=== PATIENT | female | born 1945 | race Caucasian/White ===

== ENCOUNTER 2016-07-29 19:59 | Inpatient (IN) | payer OTHER ==
[2016-07-29 20:06] VITALS: BMI 20.1
--- NOTE | 2016-07-29 21:45 | PDOC ---
History of Present Illness - General History Source: Patient, Family (Vera) - History of Present Illness Initial Comments: 07/29/16 21:54 The patient is a 70 year old female with no reported significant past medical history, who presents to the ER s/p unwitnessed fall today. Patient reports she fell backwards while trying to walk down the steps of her apartment. She states she fell backwards without reported dizziness or lightheadedness at the time of the incident. As per patients daughter, patient has frequently lost her balance secondary to her hip replacement problems. Patient states the ball came out of the socket and she has had previous falls secondary to this problem. 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 Patient states she lifted herself up after the fall without assistance. She admits to hitting her head during the fall and believes she lost consciousness. Denies nausea, vomiting Denies dizziness or lightheadedness Denies fever, chills Denies weakness, paresthesia, numbness Denies chest pain or shortness of breath Social Hx: Patient lives on her own. She admits to smoking 1 pack of cigs/day and drinking a couple of glasses of alcohol every night. <Jocy Abreu - Last Filed: 07/30/16 00:18> <Lizette Hare - Last Filed: 07/30/16 19:50> - General Chief Complaint: Injury Stated Complaint: HEAD INJURY Time Seen by Provider: 07/29/16 20:14 Past History <Jocy Abreu - Last Filed: 07/30/16 00:18> - Psycho/Social/Smoking Cessation Hx Suicidal Ideation: No Smoking History: Never smoked Have you smoked in the past 12 months: No Information on smoking cessation initiated: No Hx Alcohol Use: No Drug/Substance Use Hx: No <Lizette Hare - Last Filed: 07/30/16 19:50> - Past Medical History Allergies/Adverse Reactions: Allergies Allergy/AdvReac Type Severity Reaction Status Date / Time No Known Allergies Allergy Verified 07/29/16 20:13 Home Medications: Ambulatory Orders Aspirin [ASA -] 81 mg PO DAILY 07/29/16 Meloxicam 7.5 mg PO DAILY 07/29/16 Review of Systems - Review of Systems Comments:: 07/29/16 21:54 CONSTITUTIONAL: Absent: fever, no chills, no fatigue EYES: Absent: visual changes ENT: Absent: ear pain, no sore throat CARDIOVASCULAR: Absent: chest pain, no palpitations RESPIRATORY: Absent: cough, no SOB GI: Absent: abdominal pain, no nausea, no vomiting, no constipation, no diarrhea GENITOURINARY: Absent: dysuria, no frequency, no hematuria MUSCULOSKELETAL: Present: (+) head trauma/pain Absent: back pain, no arthralgia, no myalgia SKIN: Absent: rash NEURO: Absent: headache <NmfabienneJocy - Last Filed: 07/30/16 00:18> *Physical Exam - Vital Signs Last Vital Signs Temp Pulse Resp BP Pulse Ox 97.8 F 94 H 18 111/65 99 07/29/16 20:04 07/29/16 20:04 07/29/16 20:04 07/29/16 20:04 07/29/16 20:04 - Physical Exam Comments: 07/29/16 21:55 GENERAL: Smells of alcohol, slurring speech. Malnourished. Pale. No apparent distress. Has dentures. HEENT: Scalp laceration in the posterior head. Normocephalic, atraumatic. PERRL, EOM intact. CARDIOVASCULAR: Normal S1, S2. Regular rate and rhythm. PULMONARY: Clear to auscultation bilaterally. ABDOMEN: Soft, non-distended, non-tender. EXTREMITIES: Pelvic ramus not palpable and is asymmetric. No pitting edema in legs. Normal ROM in all four extremities. No gross deformities. SKIN: Warm, dry. No rash NEUROLOGICAL: Following commands. No focal neurological deficits. <NmfabienneJocy - Last Filed: 07/30/16 00:18> - Vital Signs Last Vital Signs Temp Pulse Resp BP Pulse Ox 97.8 F 94 H 18 111/65 99 07/29/16 20:04 07/29/16 20:04 07/29/16 20:04 07/29/16 20:04 07/29/16 20:04 <Lizette Hare - Last Filed: 07/30/16 19:50> Procedures - Laceration/Wound Repair Posterior Head Wound Length: 2.6 to 5.0 cm Wound Explored: clean Wound's Depth, Shape: into muscle, linear Irrigated w/ Saline: Yes Betadine Prep: No Wound Repaired With: [place] (Five sami placed) <Lizette Hare - Last Filed: 07/30/16 19:50> ED Treatment Course - LABORATORY CBC & Chemistry Diagram: 07/30/16 07:25 07/30/16 18:30 - RADIOLOGY Radiology Studies Ordered: Category Date Time Status CERVICAL SPINE CT W/O CONTR [CT] Stat CT Scan 07/29/16 20:[address] WITHOUT CONTRAST [CT] Stat CT Scan 07/29/16 20:15 Completed <Lizette Hare - Last Filed: 07/30/16 19:50> Medical Decision Making - Medical Decision Making 07/30/16 19:46 Pt is an alcoholic who lives alone. 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 Pt will remain in the ER for observation. Her PMD is Cheli -- I spoke to him and we discussed the possibility of sending patient to alcohol detox once she completes medical evaluation. Dr. Hayes is covering for PMD and he is aware of the patient. 07/30/16 19:47 Pt was found to have severe hyponatremia and hypokalemia when we did labs for admission of the patient. She will be treated with banana bag and potassium replacement. <Lizette Hare - Last Filed: 07/30/16 19:50> *DC/Admit/Observation/Transfer - Attestations Scribe Attestion: 07/29/16 21:59 Documentation prepared by Jocy Abreu, acting as biomedical equipment support specialist for Lizette Hare MD. <Jocy Abreu - Last Filed: 07/30/16 00:18> - Discharge Dispostion Admit: Yes <Lizette Hare - Last Filed: 07/30/16 19:50> Diagnosis at time of Disposition: Inability to ambulate due to hip, Alcohol abuse, Hyponatremia, Hypokalemia Head injury Qualifiers: Encounter type: initial encounter Qualified Code(s): S09.90XA - Unspecified injury of head, initial encounter
[2016-07-30 00:25] LABS: BASOPHIL 0.2 % (0-2.0); MCH 20.4 pg (25.7-33.7); MCHC 31.2 g/dl (32.0-36.0); MEAN CELL VOLUME 65.1 fl (80-96); MEAN PLT VOLUME 8.3 fl (7.5-11.1); NEUTROPHILS 85.7 % (42.8-82.8); PLATELET COUNT 204 K/MM3 (134-434); RDW 24.6 % (11.6-15.6); WHITE BLOOD COUNT 10.2 K/mm3 (4.0-10.0)
[2016-07-30 00:50] LABS: ALBUMIN 3.1 g/dl (3.4-5.0); ALK PHOS 72 U/L (45-117); ANION GAP 16 (8-16); BILIRUBIN,TOTAL 0.8 mg/dL (0.2-1.0); CALCIUM 7.9 mg/dL (8.5-10.1); CO2 25 mmol/L (21-32); CREATININE 0.3 mg/dL (0.55-1.02); GLUCOSE,RANDOM 90 mg/dL (74-106); SGOT/AST 65 U/L (15-37); SGPT/ALT 23 U/L (12-78); TOT PROT 7.1 g/dl (6.4-8.2)
[2016-07-30] MEDS ORDERED: FOLIC ACID INJECTION - 1 MG, THIAMINE HCL 100 MG, MULTIVIT INJECTION ADULT 10 ML in SOD... IVPB ONE (00:53)
[2016-07-30] MEDS ORDERED: POTASSIUM CHLORIDE TABS 20 MEQ TABLET.ER (FP) PO ONE ×4 (00:53→20:27)
[2016-07-30] MEDS ORDERED: MAGNESIUM SULF 50% (8.12 MEQ/2 ML-1 GM VIAL) IVPB ONE (00:53)
[2016-07-30] MEDS ORDERED: OXYCODONE/APAP 5/325MG COMBO TABLET PO PRN (01:12)
[2016-07-30 01:13] LABS: INR 1.22 (0.82-1.09); PROTHROMBIN TIME (PATIENT) 13.5 SEC (9.98-11.88)
[2016-07-30] MEDS ORDERED: OXYCODONE/APAP 5/325MG COMBO TABLET ONE (01:17)
[2016-07-30 02:10] LABS: ANISOCYTOSIS 3+; HYPOCHROMIA 3+; MICROCYTOSIS 1+
[2016-07-30] MEDS ORDERED: oxyCODONE HCL 5 MG TABLET PO PRN (07:50)
[2016-07-30] MEDS ORDERED: ACETAMINOPHEN 325 MG TABLET (FP) PO PRN (07:50)
[2016-07-30 07:56] LABS: MCH 21.1 pg (25.7-33.7); MCHC 32.6 g/dl (32.0-36.0); MEAN CELL VOLUME 64.8 fl (80-96); MEAN PLT VOLUME 8.7 fl (7.5-11.1); PLATELET COUNT 175 K/MM3 (134-434); RDW 24.5 % (11.6-15.6); WHITE BLOOD COUNT 6.9 K/mm3 (4.0-10.0)
[2016-07-30 08:08] LABS: ALBUMIN 2.8 g/dl (3.4-5.0); ANION GAP 13 (8-16); CALCIUM 7.7 mg/dL (8.5-10.1); CO2 26 mmol/L (21-32); GLUCOSE,RANDOM 76 mg/dL (74-106)
[2016-07-30 08:13] LABS: ALK PHOS 63 U/L (45-117); BILIRUBIN,TOTAL 1.1 mg/dL (0.2-1.0); CREATININE 0.3 mg/dL (0.55-1.02); SGOT/AST 48 U/L (15-37); SGPT/ALT 19 U/L (12-78); TOT PROT 6.2 g/dl (6.4-8.2)
--- NOTE | 2016-07-30 10:49 | HP ---
Admitting History and Physical - Primary Care Physician PCP: Shauna Cuevas - Admission Chief Complaint: FALL/HEAD TRAUMA/ACUTE HYPONATREMIA History of Present Illness: The patient is a 70 year old female with no reported significant past medical history, who presents to the ER s/p unwitnessed fall today. Patient reports she fell backwards while trying to walk down the steps of her apartment. She states she fell backwards without reported dizziness or lightheadedness at the time of the incident. As per patients daughter, patient has frequently lost her balance secondary to her hip replacement problems. Patient states the ball came out of the socket and she has had previous falls secondary to this problem. 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 Patient states she lifted herself up after the fall without assistance. She admits to hitting her head during the fall and believes she lost consciousness. Denies nausea, vomiting Denies dizziness or lightheadedness Denies fever, chills Denies weakness, paresthesia, numbness Denies chest pain or shortness of breath History Source: Patient Limitations to Obtaining History: No Limitations - Past Medical History Musculoskeletal: Yes: Osteoarthritis - Past Surgical History Past Surgical History: Yes: Joint Replacement - Smoking History Smoking history: Smoker current status UNK Have you smoked in the past 12 months: Yes Aproximately how many cigarettes per day: 12 - Alcohol/Substance Use Hx Alcohol Use: Yes Home Medications - Allergies Allergies/Adverse Reactions: Allergies Allergy/AdvReac Type Severity Reaction Status Date / Time No Known Allergies Allergy Verified 07/29/16 20:13 - Home Medications Home Medications: Ambulatory Orders Aspirin [ASA -] 81 mg PO DAILY 07/29/16 Meloxicam 7.5 mg PO DAILY 07/29/16 Review of Systems - Review of Systems Constitutional: reports: Weakness Eyes: reports: No Symptoms HENT: reports: No Symptoms Neck: reports: No Symptoms Cardiovascular: reports: No Symptoms Respiratory: reports: No Symptoms Gastrointestinal: reports: No Symptoms Genitourinary: reports: No Symptoms Musculoskeletal: reports: Joint Pain, Muscle Weakness Integumentary: reports: Wound (HEAD) Neurological: reports: No Symptoms Endocrine: reports: No Symptoms Hematology/Lymphatic: reports: No Symptoms Psychiatric: reports: No Symptoms Physical Examination Vital Signs: Vital Signs Temperature 98.1 F 07/30/16 10:00 Pulse Rate 89 07/30/16 10:00 Respiratory Rate 18 07/30/16 10:00 Blood Pressure 136/65 07/30/16 10:00 O2 Sat by Pulse Oximetry (%) 94 L 07/30/16 02:55 Constitutional: Yes: Mild Distress Eyes: Yes: WNL HENT: Yes: Other (HEAD TRAUMA WITH SUTURES, PURELENT BLOODY DISCHARGE) Neck: Yes: WNL Cardiovascular: Yes: WNL Respiratory: Yes: WNL Gastrointestinal: Yes: WNL Renal/: Yes: WNL Musculoskeletal: Yes: Muscle Weakness Extremities: Yes: WNL Edema: No Peripheral Pulses WNL: Yes Integumentary: Yes: Other Wound/Incision: Yes: [place] Intact, Other (OCCIPITAL HEAD WITH DISCHARGE BLLOD) ...Motor Strength: LLE, RLE Psychiatric: Yes: Other Labs: CBC, BMP 07/30/16 07:25 07/30/16 07:25 Problem List - Problems (1) Head injury Code(s): S09.90XA - UNSPECIFIED INJURY OF HEAD, INITIAL ENCOUNTER Qualifiers: Encounter type: initial encounter Qualified Code(s): S09.90XA - Unspecified injury of head, initial encounter (2) Hyponatremia Code(s): E87.1 - HYPO-OSMOLALITY AND HYPONATREMIA (3) Inability to ambulate due to hip Code(s): R26.2 - DIFFICULTY IN WALKING, NOT ELSEWHERE CLASSIFIED Assessment/Plan HYPONATREMIA ON NORMAL SALINE REPEAT NA+ LEVEL 12 PM, AND 6PM TODAY RENAL EVAL PHYSICAL THERAPY EVAL ETOH? PAIN CONTROL FLL PRECAUTIONS
[2016-07-30] MEDS ORDERED: SODIUM CHLORIDE 1,000 ML IV SCH (11:00)
[2016-07-30 12:28] LABS: CALCIUM 8.1 mg/dL (8.5-10.1); COCKROFT - GAULT 104.55; CREATININE 0.4 mg/dL (0.55-1.02)
--- NOTE | 2016-07-30 14:23 | CONSULT ---
Consult - text type - Consultation Consultation Note: Neurology The patient is a 70 year old female with no reported significant past medical history, who presents to the ER s/p unwitnessed fall today. Patient reports she fell backwards while trying to walk down the steps of her apartment. She states she fell backwards without reported dizziness or lightheadedness at the time of the incident. As per patients daughter, patient has frequently lost her balance secondary to her hip replacement problems. Patient states the ball came out of the socket and she has had previous falls secondary to this problem. 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 Patient states she lifted herself up after the fall without assistance. She admits to hitting her head during the fall and believes she lost consciousness. CT head was completed and did not show acute changes. CT C spine also without acute changes. SHe does have a walker that she does not use regularly and I had extensive conversation with her about the importance of it to increase ambulation and decrease risk of traumatic falls. Past History - Psycho/Social/Smoking Cessation Hx Suicidal Ideation: No Smoking History: Never smoked Have you smoked in the past 12 months: No Information on smoking cessation initiated: No Hx Alcohol Use: No Drug/Substance Use Hx: No - Past Medical History Allergies/Adverse Reactions: Allergies Allergy/AdvReac Type Severity Reaction Status Date / Time No Known Allergies Allergy Verified 07/29/16 20:13 Home Medications: Ambulatory Orders Aspirin [ASA -] 81 mg PO DAILY 07/29/16 Meloxicam 7.5 mg PO DAILY 07/29/16 Review of Systems - Review of Systems Comments:: 07/29/16 21:54 CONSTITUTIONAL: Absent: fever, no chills, no fatigue EYES: Absent: visual changes ENT: Absent: ear pain, no sore throat CARDIOVASCULAR: Absent: chest pain, no palpitations RESPIRATORY: Absent: cough, no SOB GI: Absent: abdominal pain, no nausea, no vomiting, no constipation, no diarrhea GENITOURINARY: Absent: dysuria, no frequency, no hematuria MUSCULOSKELETAL: Present: (+) head trauma/pain Absent: back pain, no arthralgia, no myalgia SKIN: Absent: rash NEURO: Absent: headache *Physical Exam - Vital Signs Last Vital Signs Temp Pulse Resp BP Pulse Ox 97.8 F 94 H 18 111/65 99 07/29/16 20:04 07/29/16 20:04 07/29/16 20:04 07/29/16 20:04 07/29/16 20:04 - Physical Exam Comments: 07/29/16 21:55 GENERAL: Smells of alcohol, slurring speech. Malnourished. Pale. No apparent distress. Has dentures. HEENT: Scalp laceration in the posterior head. Normocephalic, atraumatic. PERRL, EOM intact. CARDIOVASCULAR: Normal S1, S2. Regular rate and rhythm. PULMONARY: Clear to auscultation bilaterally. ABDOMEN: Soft, non-distended, non-tender. EXTREMITIES: Pelvic ramus not palpable and is asymmetric. No pitting edema in legs. Normal ROM in all four extremities. No gross deformities. SKIN: Warm, dry. No rash NEUROLOGICAL: Following commands. No focal neurological deficits. CBCD WBC 6.9 K/mm3 (4.0-10.0) D 07/30/16 07:25 RBC 3.39 M/mm3 (3.60-5.2) L 07/30/16 07:25 Hgb 7.2 GM/dL (10.7-15.3) L 07/30/16 07:25 Hct 22.0 % (32.4-45.2) L 07/30/16 07:25 MCV 64.8 fl (80-96) L 07/30/16 07:25 MCHC 32.6 g/dl (32.0-36.0) 07/30/16 07:25 RDW 24.5 % (11.6-15.6) H 07/30/16 07:25 Plt Count 175 K/MM3 (134-434) 07/30/16 07:25 MPV 8.7 fl (7.5-11.1) 07/30/16 07:25 CMP Sodium 120 mmol/L (136-145) L* 07/30/16 11:55 Potassium 3.5 mmol/L (3.5-5.1) 07/30/16 11:55 Chloride 84 mmol/L (98-107) L 07/30/16 11:55 Carbon Dioxide 27 mmol/L (21-32) 07/30/16 11:55 Anion Gap 9 (8-16) 07/30/16 11:55 BUN 5 mg/dL (7-18) L D 07/30/16 11:55 Creatinine 0.4 mg/dL (0.55-1.02) L D 07/30/16 11:55 Creat Clearance w eGFR > 60 (>60) 07/30/16 07:25 Calcium 8.1 mg/dL (8.5-10.1) L 07/30/16 11:55 Total Bilirubin 1.1 mg/dL (0.2-1.0) H D 07/30/16 07:25 AST 48 U/L (15-37) H D 07/30/16 07:25 ALT 19 U/L (12-78) 07/30/16 07:25 Alkaline Phosphatase 63 U/L (45-117) 07/30/16 07:25 Total Protein 6.2 g/dl (6.4-8.2) L 07/30/16 07:25 Albumin 2.8 g/dl (3.4-5.0) L 07/30/16 07:25 Plan: 70 year old female with no reported significant past medical history, who presents to the ER s/p unwitnessed fall today. Patient reports she fell backwards while trying to walk down the steps of her apartment. She states she fell backwards without reported dizziness or lightheadedness at the time of the incident. As per patients daughter, patient has frequently lost her balance secondary to her hip replacement problems. Patient states the ball came out of the socket and she has had previous falls secondary to this problem. 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 Patient states she lifted herself up after the fall without assistance. She admits to hitting her head during the fall and believes she lost consciousness. CT head was completed and did not show acute changes. CT C spine also without acute changes. SHe does have a walker that she does not use regularly and I had extensive conversation with her about the importance of it to increase ambulation and decrease risk of traumatic falls. Agree with PT. Patient needs to use rolling walker. Ortho follow up regarding hip.
[2016-07-30 15:28] LABS: CALCIUM 7.6 mg/dL (8.5-10.1); COCKROFT - GAULT 139.4; CREATININE 0.3 mg/dL (0.55-1.02)
--- NOTE | 2016-07-30 17:50 | CONSULT ---
Consult Consult Specialty:: Nephrology Reason for Consultation:: Hyponatremia - History of Present Illness Chief Complaint: presented s/p fall History of Present Illness: Pt is a 70 year old female with pmhx of arthritis who presents to the ER after a fall in her kitchen. She complains of frequent loss of balance. She was found to by hyponatremic and I was called to evaluate her. She says she has not been eating or drinking much for the last week. She does drink one bottle of wine every day. She denies diarrhea or loose stools. She says she takes Mobic daily. She did loose consciousness. She says she does often feel dizzy. - History Source History Provided By: Patient, Family Member, Medical Record - Past Medical History Musculoskeletal: Yes: Osteoarthritis - Past Surgical History Past Surgical History: Yes: Joint Replacement - Alcohol/Substance Use Hx Alcohol Use: Yes - Smoking History Smoking history: Smoker current status UNK Have you smoked in the past 12 months: Yes Aproximately how many cigarettes per day: 12 Home Medications - Allergies Allergies/Adverse Reactions: Allergies Allergy/AdvReac Type Severity Reaction Status Date / Time No Known Allergies Allergy Verified 07/29/16 20:13 - Home Medications Home Medications: Ambulatory Orders Aspirin [ASA -] 81 mg PO DAILY 07/29/16 Meloxicam 7.5 mg PO DAILY 07/29/16 Family Disease History - Family Disease History Family History: Denies Review of Systems - Review of Systems Constitutional: reports: Malaise Eyes: reports: No Symptoms HENT: reports: No Symptoms Neck: reports: No Symptoms Cardiovascular: reports: No Symptoms Respiratory: reports: No Symptoms Gastrointestinal: reports: No Symptoms Genitourinary: reports: No Symptoms Musculoskeletal: reports: Joint Pain Integumentary: reports: No Symptoms Neurological: reports: No Symptoms Endocrine: reports: No Symptoms Hematology/Lymphatic: reports: No Symptoms Psychiatric: reports: No Symptoms Physical Exam Vital Signs: Vital Signs Temperature 98.0 F 07/30/16 14:09 Pulse Rate 91 H 07/30/16 14:09 Respiratory Rate 18 07/30/16 14:09 Blood Pressure 155/67 07/30/16 14:09 O2 Sat by Pulse Oximetry (%) 96 07/30/16 10:00 Constitutional: Yes: Anxious Eyes: Yes: Conjunctiva Clear HENT: Yes: Atraumatic Neck: Yes: Supple Cardiovascular: Yes: S1, S2 Respiratory: Yes: CTA Bilaterally Gastrointestinal: Yes: Normal Bowel Sounds, Soft Renal/: Yes: WNL Musculoskeletal: Yes: WNL Edema: No Neurological: Yes: Oriented Psychiatric: Yes: Oriented Labs: CBC, BMP 07/30/16 07:25 07/30/16 15:00 Laboratory Tests 07/30/16 07/30/16 07/30/16 00:10 00:10 00:10 WBC 10.2 H Hgb 7.9 L Plt Count 204 Sodium 115 L* Potassium Chloride Carbon Dioxide Anion Gap BUN Creatinine AST ALT Albumin Alcohol, Quantitative 54.8 H* 07/30/16 07/30/16 07/30/16 07:25 07:25 11:55 WBC 6.9 D Hgb 7.2 L Plt Count 175 Sodium 121 L* 120 L* Potassium 3.5 D 3.5 Chloride Carbon Dioxide Anion Gap BUN Creatinine AST 48 H D ALT 19 Albumin 2.8 L Alcohol, Quantitative 07/30/16 15:00 WBC Hgb Plt Count Sodium 122 L* Potassium 3.2 L Chloride 86 L Carbon Dioxide 28 Anion Gap 8 BUN 5 L Creatinine 0.3 L D AST ALT Albumin Alcohol, Quantitative Imaging - Results Cat Scan: Report Reviewed (ct head negative) Problem List - Problems (1) Alcohol abuse Code(s): F10.10 - ALCOHOL ABUSE, UNCOMPLICATED (2) Head injury Code(s): S09.90XA - UNSPECIFIED INJURY OF HEAD, INITIAL ENCOUNTER Qualifiers: Encounter type: initial encounter Qualified Code(s): S09.90XA - Unspecified injury of head, initial encounter (3) Hypokalemia Code(s): E87.6 - HYPOKALEMIA (4) Hyponatremia Code(s): E87.1 - HYPO-OSMOLALITY AND HYPONATREMIA (5) Fall Code(s): W19.XXXA - UNSPECIFIED FALL, INITIAL ENCOUNTER Assessment/Plan Current Medications Generic Name Dose Route Start Last Admin Trade Name Freq PRN Reason Stop Dose Admin Acetaminophen 325 mg 07/30/16 07:50 07/30/16 14:12 Tylenol - PO 325 mg Q6H PRN Administration PAIN Sodium Chloride 1,000 mls @ 83 mls/hr 07/30/16 11:00 07/30/16 11:03 Normal Saline - IV 83 mls/hr ASDIR JESE Administration Oxycodone HCl 5 mg 05/20/17 07:50 07/30/16 14:12 Roxicodone - PO 5 mg Q6H PRN Administration PAIN Impression 1. hyponatremia 2. osteoarthritis 3. hypokalemia 4. etoh abuse 5. s/p fall Plan - cont with saline - goal is not to increase sodium by more than 10 meq in 24 hours - sodium is rising slowly as planned - replace potassium - check magnesium level - will send hyponatremia workup - recommend that pt stops drinking alcohol, will likely need rehab - hold mobic and nsaids for now - will follow Dr Lakhani
[2016-07-30 19:14] LABS: ALBUMIN 2.7 g/dl (3.4-5.0); ALK PHOS 61 U/L (45-117); ANION GAP 9 (8-16); BILIRUBIN,TOTAL 0.9 mg/dL (0.2-1.0); CALCIUM 7.7 mg/dL (8.5-10.1); CO2 27 mmol/L (21-32); CREATININE 0.4 mg/dL (0.55-1.02); GLUCOSE,RANDOM 105 mg/dL (74-106); MAGNESIUM 1.3 mg/dL (1.8-2.4); SGOT/AST 41 U/L (15-37); SGPT/ALT 18 U/L (12-78); TOT PROT 6.1 g/dl (6.4-8.2)
--- NOTE | 2016-07-30 20:27 | PN ---
Progress Note (short form) - Note Progress Note: Current Medications Generic Name Dose Route Start Last Admin Trade Name Freq PRN Reason Stop Dose Admin Acetaminophen 325 mg 07/30/16 07:50 07/30/16 14:12 Tylenol - PO 325 mg Q6H PRN Administration PAIN Potassium Chloride 10 meq/ 1,005 mls @ 83 mls/hr 07/30/16 17:53 Sodium Chloride IV Q12H JESE Oxycodone HCl 5 mg 07/30/16 07:50 07/30/16 14:12 Roxicodone - PO 5 mg Q6H PRN Administration PAIN Laboratory Tests 07/30/16 18:30 Sodium 124 L* Potassium 3.3 L Chloride 88 L Carbon Dioxide 27 Anion Gap 9 BUN 5 L Creatinine 0.4 L D Laboratory Tests 07/30/16 18:30 Magnesium 1.3 L Will continue fluids Will replace magnesium Dr Lakhani Problem List - Problems (1) Alcohol abuse Code(s): F10.10 - ALCOHOL ABUSE, UNCOMPLICATED (2) Head injury Code(s): S09.90XA - UNSPECIFIED INJURY OF HEAD, INITIAL ENCOUNTER Qualifiers: Encounter type: initial encounter Qualified Code(s): S09.90XA - Unspecified injury of head, initial encounter (3) Hypokalemia Code(s): E87.6 - HYPOKALEMIA (4) Hyponatremia Code(s): E87.1 - HYPO-OSMOLALITY AND HYPONATREMIA (5) Fall Code(s): W19.XXXA - UNSPECIFIED FALL, INITIAL ENCOUNTER
--- NOTE | 2016-07-30 21:50 | CONSULT ---
Consult - text type - Consultation Consultation Note: FULL CONSULT DICTATED IMP: RIGHT HIP PAIN S/P HEMIARTHROPLASTY DONE ELSEWHERE, NO FX PLAN:WBAT, ANALGESICS, PT, DC PLANNING
--- NOTE | 2016-07-30 23:12 | CONS ---
DATE OF CONSULTATION: 07/30/2016 HISTORY OF PRESENT ILLNESS: The patient is a 70-year-old female status post right hemiarthroplasty in the past, admitted to the hospital with inability to ambulate and difficulty with ambulation, questionable if there was a fall, but the patient not complaining of any pain. PHYSICAL EXAMINATION: GENERAL: She was walking to the bathroom with no discomfort when I came into the room. EXTREMITIES: No ecchymosis, swelling, erythema. Good motion of the hips, knees ankles, and toes. Calves soft nontender. Some tenderness in the lumbosacral spine at the inferior aspect. Otherwise, neurovascularly intact. IMAGING: X-rays of the pelvis and MRI of right hip show status post right hemiarthroplasty with no acute fracture. IMPRESSION: Status post right hemiarthroplasty in the past with no acute fracture at this time. Questionable lower back pain but no acute orthopedic injury. PLAN: Weightbearing as tolerated. Physical therapy and discharge planning. Teri [id number]
[2016-07-31] MEDS ORDERED: POTASSIUM CHLORIDE TABS 20 MEQ TABLET.ER (FP) PO ONE (01:00)
[2016-07-31] MEDS: SODIUM CHLORIDE 1,000 ML with POTASSIUM CHLORIDE 10 MEQ IV SCH ×3 (01:08→09:58)
[2016-07-31] MEDS: MULTIVITAMINS (DAILY MVI) TABLET (FP) PO SCH ×2 (01:10→09:59)
[2016-07-31] MEDS: THIAMINE HCL 100 MG TABLET (FP) PO SCH ×3 (01:10→21:55)
[2016-07-31] MEDS: FOLIC ACID 1 MG TABLET (FP) PO SCH ×2 (01:11→09:59)
[2016-07-31] MEDS: MAGNESIUM OXIDE 400 MG TABLET (FP) PO SCH ×3 (01:11→21:55)
[2016-07-31] MEDS: chlordiazePOXIDE HCL 25 MG CAPSULE PO SCH ×5 (03:07→21:29)
[2016-07-31 06:45] LABS: MCH 20.7 pg (25.7-33.7); MCHC 31.1 g/dl (32.0-36.0); MEAN CELL VOLUME 66.5 fl (80-96); MEAN PLT VOLUME 8.6 fl (7.5-11.1); PLATELET COUNT 221 K/MM3 (134-434); RDW 25.2 % (11.6-15.6); WHITE BLOOD COUNT 5.3 K/mm3 (4.0-10.0)
[2016-07-31 07:16] LABS: ANION GAP 11 (8-16); CALCIUM 7.8 mg/dL (8.5-10.1); CO2 24 mmol/L (21-32); GLUCOSE,RANDOM 78 mg/dL (74-106); MAGNESIUM 1.3 mg/dL (1.8-2.4); SGPT/ALT 18 U/L (12-78)
[2016-07-31 07:29] LABS: ALK PHOS 65 U/L (45-117); BILIRUBIN,TOTAL 0.8 mg/dL (0.2-1.0); CREATININE 0.3 mg/dL (0.55-1.02); SGOT/AST 41 U/L (15-37); THYROID STIMULATING HORMONE 1.41 uIU/ml (0.358-3.74); TOT PROT 6.6 g/dl (6.4-8.2)
[2016-07-31] MEDS ORDERED: PT OWN MED DRAWER 7, Y5N ONE ×3 (09:56→21:45)
[2016-07-31 09:58] LABS: OSMOLALITY,SERUM 248 mosm/kg (278-305)
[2016-07-31] MEDS ORDERED: SODIUM CHLORIDE 1,000 ML IV SCH (11:45)
[2016-07-31] MEDS ORDERED: MAGNESIUM SULF 50% (8.12 MEQ/2 ML-1 GM VIAL) IVPB ONE (11:45)
[2016-07-31] MEDS: METHYL SALICYLATE/MENTHOL OINT 30 GM TUBE TP SCH ×2 (14:56→21:54)
--- NOTE | 2016-07-31 16:08 | PN ---
Progress Note, Physician History of Present Illness: Pt seen and examined at bedside. She is more awake and alert today. She denies headache. - Current Medication List Current Medications: Active Medications Acetaminophen (Tylenol -) 325 mg PO Q6H PRN PRN Reason: PAIN Last Admin: 07/30/16 14:12 Dose: 325 mg Chlordiazepoxide HCl (Librium -) 50 mg PO Q6HPO [facility] Last Admin: 07/31/16 11:50 Dose: 50 mg Folic Acid (Folic Acid -) 1 mg PO DAILY [facility] Last Admin: 07/31/16 09:59 Dose: 1 mg Sodium Chloride (Normal Saline -) 1,000 mls @ 83 mls/hr IV ASDIR [facility] Last Admin: 07/31/16 11:49 Dose: 83 mls/hr Magnesium Oxide (Mag-Ox -) 400 mg PO BID [facility] Last Admin: 07/31/16 09:59 Dose: 400 mg Methyl Salicylate ([place]-Yancey -) 1 applic TP BID [facility] Last Admin: 07/31/16 14:56 Dose: 1 applic Multivitamins/Minerals/Vitamin C (Tab-A-Vit -) 1 tab PO DAILY [facility] Last Admin: 07/31/16 09:59 Dose: 1 tab Oxycodone HCl (Roxicodone -) 5 mg PO Q6H PRN PRN Reason: PAIN Last Admin: 07/30/16 14:12 Dose: 5 mg Thiamine HCl (Vitamin B1 -) 100 mg PO BID [facility] Last Admin: 07/31/16 09:59 Dose: 100 mg - Objective Vital Signs: Vital Signs Temperature 98.3 F 07/31/16 14:26 Pulse Rate 85 07/31/16 14:26 Respiratory Rate 18 07/31/16 14:26 Blood Pressure 122/62 07/31/16 14:26 O2 Sat by Pulse Oximetry (%) 95 07/31/16 10:00 Constitutional: Yes: Calm Eyes: Yes: Conjunctiva Clear Neck: Yes: Supple Cardiovascular: Yes: S1, S2 Respiratory: Yes: CTA Bilaterally Gastrointestinal: Yes: Soft Genitourinary: Yes: WNL Musculoskeletal: Yes: WNL Edema: No Neurological: Yes: Oriented Psychiatric: Yes: Oriented Labs: CBC, BMP 07/31/16 05:40 07/31/16 05:40 INR, PTT INR 1.22 (0.82-1.09) H 07/30/16 00:15 Problem List - Problems (1) Alcohol abuse Code(s): F10.10 - ALCOHOL ABUSE, UNCOMPLICATED (2) Head injury Code(s): S09.90XA - UNSPECIFIED INJURY OF HEAD, INITIAL ENCOUNTER Qualifiers: Encounter type: initial encounter Qualified Code(s): S09.90XA - Unspecified injury of head, initial encounter (3) Hypokalemia Code(s): E87.6 - HYPOKALEMIA (4) Hyponatremia Code(s): E87.1 - HYPO-OSMOLALITY AND HYPONATREMIA (5) Fall Code(s): W19.XXXA - UNSPECIFIED FALL, INITIAL ENCOUNTER Assessment/Plan Current Medications Generic Name Dose Route Start Last Admin Trade Name Freq PRN Reason Stop Dose Admin Acetaminophen 325 mg 07/30/16 07:50 07/30/16 14:12 Tylenol - PO 325 mg Q6H PRN Administration PAIN Chlordiazepoxide HCl 50 mg 07/31/16 00:00 07/31/16 11:50 Librium - PO 50 mg Q6HPO [facility]ESE Administration Folic Acid 1 mg 07/30/16 20:45 07/31/16 09:59 Folic Acid - PO 1 mg DAILY JESE Administration Sodium Chloride 1,000 mls @ 83 mls/hr 07/31/16 11:45 07/31/16 11:49 Normal Saline - IV 83 mls/hr ASDIR [facility]ESE Administration Magnesium Oxide 400 mg 07/30/16 22:00 07/31/16 09:59 Mag-Ox - PO 400 mg BID JESE Administration Methyl Salicylate 1 applic 07/31/16 12:00 07/31/16 14:56 [place]-Yancey - TP 1 applic BID JESE Administration Multivitamins/Minerals/Vitamin C 1 tab 07/30/16 20:45 07/31/16 09:59 Tab-A-Vit - PO 1 tab DAILY [facility] Administration Oxycodone HCl 5 mg 07/30/16 07:50 07/30/16 14:12 Roxicodone - PO 5 mg Q6H PRN Administration PAIN Thiamine HCl 100 mg 07/30/16 22:00 07/31/16 09:59 Vitamin B1 - PO 100 mg BID JESE Administration Laboratory Tests 07/30/16 07/31/16 07/31/16 18:00 05:40 05:40 Serum Osmolality 248 L TSH 1.41 Cortisol AM Sample Pending Urine Osmolality 116 L Impression 1. hyponatremia 2. osteoarthritis 3. hypokalemia 4. etoh abuse 5. s/p fall Plan - sodium is improving - cont with saline - continue to monitor sodium - potassium is improved - replace mag - encourage PO intake - pt is risk to fall - the urine osm is appropriately dilute - recommend that pt stops drinking alcohol, will likely need rehab - hold mobic and nsaids for now - will follow Dr Lakhani
[2016-07-31 17:24] LABS: CALCIUM 8.1 mg/dL (8.5-10.1); COCKROFT - GAULT 139.4; CREATININE 0.3 mg/dL (0.55-1.02)
[2016-07-31] MEDS ORDERED: SODIUM CHLORIDE 1,000 ML with POTASSIUM CHLORIDE 10 MEQ IVPB SCH ×2 (18:14→18:27)
--- NOTE | 2016-07-31 18:24 | PN ---
Progress Note, Physician Chief Complaint: ASLEEP NAD - Current Medication List Current Medications: Active Medications Acetaminophen (Tylenol -) 325 mg PO Q6H PRN PRN Reason: PAIN Last Admin: 07/30/16 14:12 Dose: 325 mg Chlordiazepoxide HCl (Librium -) 50 mg PO Q6HPO [facility] Last Admin: 07/31/16 11:50 Dose: 50 mg Folic Acid (Folic Acid -) 1 mg PO DAILY [facility] Last Admin: 07/31/16 09:59 Dose: 1 mg Potassium Chloride 10 meq/ (Sodium Chloride) 1,005 mls @ 100 mls/hr IVPB ASDIR [facility] Magnesium Oxide (Mag-Ox -) 400 mg PO BID [facility] Last Admin: 07/31/16 09:59 Dose: 400 mg Methyl Salicylate ([place]y -) 1 applic TP BID [facility] Last Admin: 07/31/16 14:56 Dose: 1 applic Multivitamins/Minerals/Vitamin C (Tab-A-Vit -) 1 tab PO DAILY [facility] Last Admin: 07/31/16 09:59 Dose: 1 tab Oxycodone HCl (Roxicodone -) 5 mg PO Q6H PRN PRN Reason: PAIN Last Admin: 07/30/16 14:12 Dose: 5 mg Thiamine HCl (Vitamin B1 -) 100 mg PO BID [facility] Last Admin: 07/31/16 09:59 Dose: 100 mg - Objective Vital Signs: Vital Signs Temperature 98.3 F 07/31/16 14:26 Pulse Rate 85 07/31/16 14:26 Respiratory Rate 18 07/31/16 14:26 Blood Pressure 122/62 07/31/16 14:26 O2 Sat by Pulse Oximetry (%) 95 07/31/16 10:00 Constitutional: Yes: No Distress Eyes: Yes: WNL HENT: Yes: WNL Neck: Yes: WNL Cardiovascular: Yes: WNL Respiratory: Yes: WNL Gastrointestinal: Yes: WNL Genitourinary: Yes: WNL Musculoskeletal: Yes: Muscle Weakness Extremities: Yes: WNL, Deformity Edema: No Peripheral Pulses WNL: Yes Integumentary: Yes: WNL Wound/Incision: Yes: Clean/Dry Neurological: Yes: WNL, Pre-Existing Deficit ...Motor Strength: WNL Psychiatric: Yes: Agitated Labs: CBC, BMP 07/31/16 05:40 07/31/16 16:30 INR, PTT INR 1.22 (0.82-1.09) H 07/30/16 00:15 Problem List - Problems (1) Head injury Code(s): S09.90XA - UNSPECIFIED INJURY OF HEAD, INITIAL ENCOUNTER Qualifiers: Encounter type: initial encounter Qualified Code(s): S09.90XA - Unspecified injury of head, initial encounter (2) Hyponatremia Code(s): E87.1 - HYPO-OSMOLALITY AND HYPONATREMIA (3) Inability to ambulate due to hip Code(s): R26.2 - DIFFICULTY IN WALKING, NOT ELSEWHERE CLASSIFIED Assessment/Plan HYPONATREMIA ON NORMAL SALINE REPEAT NA+ LEVEL 12 PM, AND 6PM TODAY RENAL EVAL PHYSICAL THERAPY EVAL ETOH? PAIN CONTROL FLL PRECAUTIONS LIBRIUM TAPER
[2016-07-31] MEDS: POTASSIUM CHLORIDE 10 MEQ in SODIUM CHLORIDE 1,000 ML IVPB SCH (22:54)
[2016-08-01] MEDS: chlordiazePOXIDE HCL 25 MG CAPSULE PO SCH ×4 (02:09→19:06)
[2016-08-01] MEDS: POTASSIUM CHLORIDE 10 MEQ in SODIUM CHLORIDE 1,000 ML IVPB SCH ×2 (05:19→14:50)
[2016-08-01 07:59] LABS: MCH 20.7 pg (25.7-33.7); MCHC 31.5 g/dl (32.0-36.0); MEAN CELL VOLUME 65.7 fl (80-96); MEAN PLT VOLUME 8.4 fl (7.5-11.1); PLATELET COUNT 189 K/MM3 (134-434); RDW 25.3 % (11.6-15.6); WHITE BLOOD COUNT 5.2 K/mm3 (4.0-10.0)
--- NOTE | 2016-08-01 08:31 | PN ---
Progress Note (short form) - Note Progress Note: Ortho Pt seen and examined s/p fall with right hip pain +ttp, decr rom nvi a/p PT wbat dtv ppx pain control d/c planning d/w Dr. Titus
[2016-08-01 08:42] LABS: CALCIUM 7.9 mg/dL (8.5-10.1); COCKROFT - GAULT 139.4; CREATININE 0.3 mg/dL (0.55-1.02); MAGNESIUM 1.6 mg/dL (1.8-2.4)
[2016-08-01] MEDS: METHYL SALICYLATE/MENTHOL OINT 30 GM TUBE TP SCH ×2 (10:00→22:06)
--- NOTE | 2016-08-01 10:42 | PN ---
Progress Note (short form) - Note Progress Note: Neurology 70 year old female with no reported significant past medical history, who presents to the ER s/p unwitnessed fall today. Patient reports she fell backwards while trying to walk down the steps of her apartment. She states she fell backwards without reported dizziness or lightheadedness at the time of the incident. As per patients daughter, patient has frequently lost her balance secondary to her hip replacement problems. Patient states the ball came out of the socket and she has had previous falls secondary to this problem. 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 Patient states she lifted herself up after the fall without assistance. She admits to hitting her head during the fall and believes she lost consciousness. CT head was completed and did not show acute changes. CT C spine also without acute changes. SHe does have a walker that she does not use regularly and I had extensive conversation with her about the importance of it to increase ambulation and decrease risk of traumatic falls. No significant events over the weekend. She remains in bed this morning but motivated to improve ambulation. Active Medications Acetaminophen (Tylenol -) 325 mg PO Q6H PRN PRN Reason: PAIN Last Admin: 07/30/16 14:12 Dose: 325 mg Chlordiazepoxide HCl (Librium -) 25 mg PO Q6HPO [facility] Last Admin: 08/01/16 07:56 Dose: Not Given Folic Acid (Folic Acid -) 1 mg PO DAILY [facility] Last Admin: 07/31/16 09:59 Dose: 1 mg Potassium Chloride 10 meq/ (Sodium Chloride) 1,005 mls @ 100 mls/hr IVPB Q10H [facility] Last Admin: 08/01/16 05:19 Dose: Not Given Magnesium Oxide (Mag-Ox -) 400 mg PO BID [facility] Last Admin: 07/31/16 21:55 Dose: 400 mg Methyl Salicylate ([place]-Yancey -) 1 applic TP BID [facility] Last Admin: 07/31/16 21:54 Dose: 1 applic Multivitamins/Minerals/Vitamin C (Tab-A-Vit -) 1 tab PO DAILY [facility] Last Admin: 07/31/16 09:59 Dose: 1 tab Oxycodone HCl (Roxicodone -) 5 mg PO Q6H PRN PRN Reason: PAIN Last Admin: 07/30/16 14:12 Dose: 5 mg Thiamine HCl (Vitamin B1 -) 100 mg PO BID [facility] Last Admin: 07/31/16 21:55 Dose: 100 mg Review of Systems CONSTITUTIONAL: Absent: fever, no chills, no fatigue EYES: Absent: visual changes ENT: Absent: ear pain, no sore throat CARDIOVASCULAR: Absent: chest pain, no palpitations RESPIRATORY: Absent: cough, no SOB GI: Absent: abdominal pain, no nausea, no vomiting, no constipation, no diarrhea GENITOURINARY: Absent: dysuria, no frequency, no hematuria MUSCULOSKELETAL: Present: (+) head trauma/pain Absent: back pain, no arthralgia, no myalgia SKIN: Absent: rash NEURO: Absent: headache *Physical Exam Vital Signs Temperature 98.8 F 08/01/16 06:00 Pulse Rate 85 08/01/16 06:00 Respiratory Rate 18 08/01/16 06:00 Blood Pressure 152/69 08/01/16 06:00 O2 Sat by Pulse Oximetry (%) 95 07/31/16 21:00 GENERAL: Smells of alcohol, slurring speech. Malnourished. Pale. No apparent distress. Has dentures. HEENT: Scalp laceration in the posterior head. Normocephalic, atraumatic. PERRL, EOM intact. CARDIOVASCULAR: Normal S1, S2. Regular rate and rhythm. PULMONARY: Clear to auscultation bilaterally. ABDOMEN: Soft, non-distended, non-tender. EXTREMITIES: Pelvic ramus not palpable and is asymmetric. No pitting edema in legs. Normal ROM in all four extremities. No gross deformities. SKIN: Warm, dry. No rash NEUROLOGICAL: Following commands. No focal neurological deficits. CBCD WBC 5.2 K/mm3 (4.0-10.0) 08/01/16 06:47 RBC 3.17 M/mm3 (3.60-5.2) L 08/01/16 06:47 Hgb 6.6 GM/dL (10.7-15.3) L* 08/01/16 06:47 Hct 20.8 % (32.4-45.2) L 08/01/16 06:47 MCV 65.7 fl (80-96) L 08/01/16 06:47 MCHC 31.5 g/dl (32.0-36.0) L 08/01/16 06:47 RDW 25.3 % (11.6-15.6) H 08/01/16 06:47 Plt Count 189 K/MM3 (134-434) 08/01/16 06:47 MPV 8.4 fl (7.5-11.1) 08/01/16 06:47 CMP Sodium 131 mmol/L (136-145) L 08/01/16 06:47 Potassium 3.4 mmol/L (3.5-5.1) L 08/01/16 06:47 Chloride 94 mmol/L (98-107) L 08/01/16 06:47 Carbon Dioxide 25 mmol/L (21-32) 08/01/16 06:47 Anion Gap 12 (8-16) 08/01/16 06:47 BUN 4 mg/dL (7-18) L D 08/01/16 06:47 Creatinine 0.3 mg/dL (0.55-1.02) L 08/01/16 06:47 Creat Clearance w eGFR > 60 (>60) 07/31/16 05:40 Calcium 7.9 mg/dL (8.5-10.1) L 08/01/16 06:47 Total Bilirubin 0.8 mg/dL (0.2-1.0) 07/31/16 05:40 AST 41 U/L (15-37) H 07/31/16 05:40 ALT 18 U/L (12-78) 07/31/16 05:40 Alkaline Phosphatase 65 U/L (45-117) 07/31/16 05:40 Total Protein 6.6 g/dl (6.4-8.2) 07/31/16 05:40 Albumin 3.0 g/dl (3.4-5.0) L 07/31/16 05:40 Plan: 70 year old female with no reported significant past medical history, who presents to the ER s/p unwitnessed fall today. Patient reports she fell backwards while trying to walk down the steps of her apartment. She states she fell backwards without reported dizziness or lightheadedness at the time of the incident. As per patients daughter, patient has frequently lost her balance secondary to her hip replacement problems. Patient states the ball came out of the socket and she has had previous falls secondary to this problem. 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 Patient states she lifted herself up after the fall without assistance. She admits to hitting her head during the fall and believes she lost consciousness. CT head was completed and did not show acute changes. CT C spine also without acute changes. She does have a walker that she does not use regularly and I had extensive conversation with her about the importance of it to increase ambulation and decrease risk of traumatic falls. Agree with PT. Patient needs to use rolling walker. Ortho follow up regarding hip. Fall precautions.
[2016-08-01] MEDS: FOLIC ACID 1 MG TABLET (FP) PO SCH (10:57)
[2016-08-01] MEDS: MAGNESIUM OXIDE 400 MG TABLET (FP) PO SCH ×2 (10:57→22:05)
[2016-08-01] MEDS: THIAMINE HCL 100 MG TABLET (FP) PO SCH ×2 (10:57→22:05)
[2016-08-01] MEDS: MULTIVITAMINS (DAILY MVI) TABLET (FP) PO SCH (10:57)
[2016-08-01] MEDS ORDERED: SODIUM CHLORIDE 1,000 ML IV SCH (14:39)
--- NOTE | 2016-08-01 14:39 | PN ---
Progress Note, Physician History of Present Illness: Pt seen and examined at bedside. She is awake and alert. She denies headache or change in vision. - Current Medication List Current Medications: Active Medications Acetaminophen (Tylenol -) 325 mg PO Q6H PRN PRN Reason: PAIN Last Admin: 07/30/16 14:12 Dose: 325 mg Chlordiazepoxide HCl (Librium -) 25 mg PO Q6HPO [facility] Last Admin: 08/01/16 12:25 Dose: 25 mg Folic Acid (Folic Acid -) 1 mg PO DAILY [facility] Last Admin: 08/01/16 10:57 Dose: 1 mg Potassium Chloride 10 meq/ (Sodium Chloride) 1,005 mls @ 100 mls/hr IVPB Q10H [facility] Last Admin: 08/01/16 05:19 Dose: Not Given Magnesium Oxide (Mag-Ox -) 400 mg PO BID [facility] Last Admin: 08/01/16 10:57 Dose: 400 mg Methyl Salicylate ([place]ancey -) 1 applic TP BID [facility] Last Admin: 07/31/16 21:54 Dose: 1 applic Multivitamins/Minerals/Vitamin C (Tab-A-Vit -) 1 tab PO DAILY [facility] Last Admin: 08/01/16 10:57 Dose: 1 tab Oxycodone HCl (Roxicodone -) 5 mg PO Q6H PRN PRN Reason: PAIN Last Admin: 07/30/16 14:12 Dose: 5 mg Thiamine HCl (Vitamin B1 -) 100 mg PO BID [facility] Last Admin: 08/01/16 10:57 Dose: 100 mg - Objective Vital Signs: Vital Signs Temperature 98.8 F 08/01/16 06:00 Pulse Rate 85 08/01/16 06:00 Respiratory Rate 18 08/01/16 06:00 Blood Pressure 152/69 08/01/16 06:00 O2 Sat by Pulse Oximetry (%) 95 07/31/16 21:00 Constitutional: Yes: Calm Eyes: Yes: Conjunctiva Clear HENT: Yes: Atraumatic Neck: Yes: Supple Cardiovascular: Yes: S1, S2 Respiratory: Yes: CTA Bilaterally Gastrointestinal: Yes: Soft Genitourinary: Yes: WNL Edema: No Neurological: Yes: Oriented Psychiatric: Yes: Oriented Labs: CBC, BMP 08/01/16 06:47 08/01/16 06:47 INR, PTT INR 1.22 (0.82-1.09) H 07/30/16 00:15 Problem List - Problems (1) Alcohol abuse Code(s): F10.10 - ALCOHOL ABUSE, UNCOMPLICATED (2) Head injury Code(s): S09.90XA - UNSPECIFIED INJURY OF HEAD, INITIAL ENCOUNTER Qualifiers: Encounter type: initial encounter Qualified Code(s): S09.90XA - Unspecified injury of head, initial encounter (3) Hypokalemia Code(s): E87.6 - HYPOKALEMIA (4) Hyponatremia Code(s): E87.1 - HYPO-OSMOLALITY AND HYPONATREMIA (5) Fall Code(s): W19.XXXA - UNSPECIFIED FALL, INITIAL ENCOUNTER Assessment/Plan Current Medications Generic Name Dose Route Start Last Admin Trade Name Freq PRN Reason Stop Dose Admin Acetaminophen 325 mg 07/30/16 07:50 07/30/16 14:12 Tylenol - PO 325 mg Q6H PRN Administration PAIN Chlordiazepoxide HCl 25 mg 07/31/16 20:00 08/01/16 12:25 Librium - PO 25 mg Q6HPO [facility]ESE Administration Folic Acid 1 mg 07/30/16 20:45 08/01/16 10:57 Folic Acid - PO 1 mg DAILY [facility] Administration Potassium Chloride 10 meq/ 1,005 mls @ 100 mls/hr 08/01/16 04:27 08/01/16 05:19 Sodium Chloride IVPB Not Given Q10H [facility] Magnesium Oxide 400 mg 07/30/16 22:00 08/01/16 10:57 Mag-Ox - PO 400 mg BID [facility] Administration Methyl Salicylate 1 applic 07/31/16 12:00 07/31/16 21:54 [place]ancey - TP 1 applic BID [facility] Administration Multivitamins/Minerals/Vitamin C 1 tab 07/30/16 20:45 08/01/16 10:57 Tab-A-Vit - PO 1 tab DAILY [facility] Administration Oxycodone HCl 5 mg 07/30/16 07:50 07/30/16 14:12 Roxicodone - PO 5 mg Q6H PRN Administration PAIN Thiamine HCl 100 mg 07/30/16 22:00 08/01/16 10:57 Vitamin B1 - PO 100 mg BID [facility]ESE Administration Impression 1. hyponatremia 2. osteoarthritis 3. hypokalemia 4. etoh abuse 5. s/p fall Plan - sodium continues to improve - repeat labs in am - cont with fluids - pt will get a PRBC transfusion - recommend that pt stops drinking alcohol, will likely need rehab - hold mobic and nsaids for now - will follow Dr Lakhani
--- NOTE | 2016-08-01 15:50 | PN ---
Progress Note, Physician Chief Complaint: ASLEEP, AROUSABLE TRANSFUSION IN PROCESS PRBC - Current Medication List Current Medications: Active Medications Acetaminophen (Tylenol -) 325 mg PO Q6H PRN PRN Reason: PAIN Last Admin: 07/30/16 14:12 Dose: 325 mg Chlordiazepoxide HCl (Librium -) 25 mg PO Q6HPO [facility] Last Admin: 08/01/16 12:25 Dose: 25 mg Folic Acid (Folic Acid -) 1 mg PO DAILY [facility] Last Admin: 08/01/16 10:57 Dose: 1 mg Sodium Chloride (Normal Saline -) 1,000 mls @ 100 mls/hr IV ASDIR [facility] Magnesium Oxide (Mag-Ox -) 400 mg PO BID [facility] Last Admin: 08/01/16 10:57 Dose: 400 mg Methyl Salicylate ([place] -) 1 applic TP BID [facility] Last Admin: 07/31/16 21:54 Dose: 1 applic Multivitamins/Minerals/Vitamin C (Tab-A-Vit -) 1 tab PO DAILY [facility] Last Admin: 08/01/16 10:57 Dose: 1 tab Oxycodone HCl (Roxicodone -) 5 mg PO Q6H PRN PRN Reason: PAIN Last Admin: 07/30/16 14:12 Dose: 5 mg Thiamine HCl (Vitamin B1 -) 100 mg PO BID [facility] Last Admin: 08/01/16 10:57 Dose: 100 mg - Objective Vital Signs: Vital Signs Temperature 98.2 F 08/01/16 15:22 Pulse Rate 79 08/01/16 15:22 Respiratory Rate 18 08/01/16 15:22 Blood Pressure 142/70 08/01/16 15:22 O2 Sat by Pulse Oximetry (%) 95 07/31/16 21:00 Constitutional: Yes: Mild Distress Eyes: Yes: WNL HENT: Yes: WNL Neck: Yes: WNL Cardiovascular: Yes: WNL Respiratory: Yes: WNL Gastrointestinal: Yes: WNL Genitourinary: Yes: WNL Musculoskeletal: Yes: Muscle Pain, Muscle Weakness Extremities: Yes: Deformity Edema: No Peripheral Pulses WNL: Yes Integumentary: Yes: WNL Wound/Incision: Yes: Clean/Dry Neurological: Yes: Unsteady Gait ...Motor Strength: LLE, RLE Psychiatric: Yes: Other Labs: CBC, BMP 08/01/16 06:47 08/01/16 06:47 INR, PTT INR 1.22 (0.82-1.09) H 07/30/16 00:15 Problem List - Problems (1) Head injury Code(s): S09.90XA - UNSPECIFIED INJURY OF HEAD, INITIAL ENCOUNTER Qualifiers: Encounter type: initial encounter Qualified Code(s): S09.90XA - Unspecified injury of head, initial encounter (2) Hyponatremia Code(s): E87.1 - HYPO-OSMOLALITY AND HYPONATREMIA (3) Inability to ambulate due to hip Code(s): R26.2 - DIFFICULTY IN WALKING, NOT ELSEWHERE CLASSIFIED Assessment/Plan TAPER LIBRIUM NO SIGNS OF ETOH WITHDRAWELS PT EVAL MARSHALL SOUCCI FOR PT TRANSFUSION IN PROCESS HEME CONSULT CBC AND CMP IN AM HYPONATREMIA 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
[2016-08-01] MEDS: SODIUM CHLORIDE 1,000 ML IV SCH (19:06)
--- NOTE | 2016-08-01 22:38 | CONSULT ---
Consult - text type - Consultation Consultation Note: The patient is a 70 year old female with no reported significant past medical history, who presents s/p unwitnessed fall . Patient reports she fell backwards while trying to walk down the steps of her apartment. She blamed it on hip arthroplasty Denies nausea, vomiting Denies dizziness or lightheadedness Denies fever, chills Denies weakness, paresthesia, numbness Denies chest pain or shortness of breath - Past Medical History Musculoskeletal: Yes: Osteoarthritis - Past Surgical History Past Surgical History: Yes: Joint Replacement - Smoking History Smoking history: Smoker current status UNK - Allergies Allergies/Adverse Reactions: Allergies Allergy/AdvReac Type Severity Reaction Status Date / Time No Known Allergies Allergy Verified 07/29/16 20:13 - Home Medications Home Medications: Ambulatory Orders Aspirin [ASA -] 81 mg PO DAILY 07/29/16 Meloxicam 7.5 mg PO DAILY 07/29/16 Active Medications Generic Name Dose Route Start Last Admin Trade Name Freq PRN Reason Stop Dose Admin Acetaminophen 325 mg 07/30/16 07:50 07/30/16 14:12 Tylenol - PO 325 mg Q6H PRN Administration PAIN Chlordiazepoxide HCl 25 mg 07/31/16 20:00 08/02/16 05:46 Librium - PO Not Given Q6HPO [facility] Folic Acid 1 mg 07/30/16 20:45 08/01/16 10:57 Folic Acid - PO 1 mg DAILY [facility] Administration Sodium Chloride 1,000 mls @ 100 mls/hr 08/01/16 14:51 08/02/16 04:33 Normal Saline - IV 100 mls/hr ASDIR [facility] Administration Magnesium Oxide 400 mg 07/30/16 22:00 08/01/16 22:05 Mag-Ox - PO 400 mg BID [facility] Administration Methyl Salicylate 1 applic 07/31/16 12:00 08/01/16 22:06 [place] - TP Not Given BID [facility] Multivitamins/Minerals/Vitamin C 1 tab 07/30/16 20:45 08/01/16 10:57 Tab-A-Vit - PO 1 tab DAILY [facility] Administration Oxycodone HCl 5 mg 07/30/16 07:50 07/30/16 14:12 Roxicodone - PO 5 mg Q6H PRN Administration PAIN Thiamine HCl 100 mg 07/30/16 22:00 08/01/16 22:05 Vitamin B1 - PO 100 mg BID [facility] Administration Physical Examination Vital Signs: Last Vital Signs Temp Pulse Resp BP Pulse Ox 98.7 F 82 18 111/59 96 08/02/16 04:05 08/02/16 04:05 08/02/16 04:05 08/02/16 04:05 08/01/16 22:00 Constitutional: Yes: Mild Distress Eyes: Yes: WNL Neck: Yes: WNL Cardiovascular: Yes: WNL Respiratory: Yes: WNL Gastrointestinal: Yes: WNL Extremities: Yes: WNL breat--no masses Abnormal Lab Results 07/30/16 08/01/16 08/01/16 00:15 06:47 06:47 RBC 3.17 L Hgb 6.6 L* Hct 20.8 L MCV 65.7 L MCHC 31.5 L RDW 25.3 H Sodium 131 L Potassium 3.4 L Chloride 94 L BUN 4 L D Creatinine 0.3 L Calcium 7.9 L Magnesium 1.6 L D Crossmatch See Detail Problem List 70 y/o patient with h/o alcohol abuse, recent rt. hip hemiarthroplasty, gait imbalance, comes in s/p fall . Also anemic Microcytic anemia , nl WBC/platelets Will check for iron deficiency r/o thalassemia trait given profound microcytosis B!2/folate/TSH--nl Patient never underwent EGD/colonoscopy and understands the recommendation to r/ o occult malignancy as cause of her anemia. At this time she is adamantly refusing GI w/u, She understands the consequences of delay in diagnosis o=f malignancy. She is refusing gi w/u at this time Getting PRBCS for Hgb 6.6 Monitor and may need iron replacement based on iron studies will need outpatient f/u
[2016-08-02] MEDS: chlordiazePOXIDE HCL 25 MG CAPSULE PO SCH ×3 (00:13→05:46)
[2016-08-02] MEDS: SODIUM CHLORIDE 1,000 ML IV SCH ×2 (04:33→14:00)
[2016-08-02 08:36] LABS: EOSINOPHIL 2.2 % (0-4.5); MCH 23.2 pg (25.7-33.7); MCHC 32.7 g/dl (32.0-36.0); MEAN CELL VOLUME 71.1 fl (80-96); MEAN PLT VOLUME 8.3 fl (7.5-11.1); NEUTROPHILS 63.9 % (42.8-82.8); PLATELET COUNT 194 K/MM3 (134-434); RDW 26.3 % (11.6-15.6); WHITE BLOOD COUNT 6.5 K/mm3 (4.0-10.0)
[2016-08-02 08:50] LABS: FERRITIN 44.484 ng/ml (6.9-282.5); FREE T4 1.26 ng/dl (0.76-1.46)
[2016-08-02 09:01] LABS: CALCIUM 8.4 mg/dL (8.5-10.1); COCKROFT - GAULT 139.4; CREATININE 0.3 mg/dL (0.55-1.02); THYROID STIMULATING HORMONE 0.82 uIU/ml (0.358-3.74)
[2016-08-02] MEDS ORDERED: PT OWN MED DRAWER 7, Y5N ONE (09:26)
[2016-08-02] MEDS: MAGNESIUM OXIDE 400 MG TABLET (FP) PO SCH (09:27)
[2016-08-02] MEDS: FOLIC ACID 1 MG TABLET (FP) PO SCH (09:27)
[2016-08-02] MEDS: THIAMINE HCL 100 MG TABLET (FP) PO SCH (09:27)
[2016-08-02] MEDS: MULTIVITAMINS (DAILY MVI) TABLET (FP) PO SCH (09:27)
--- NOTE | 2016-08-02 09:40 | PN ---
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
--- NOTE | 2016-08-02 12:04 | PN ---
Progress Note (short form) - Note Progress Note: Neurology 70 year old female with no reported significant past medical history, who presents to the ER s/p unwitnessed fall. Patient reports she fell backwards while trying to walk down the steps of her apartment. She states she fell backwards without reported dizziness or lightheadedness at the time of the incident. As per patients daughter, patient has frequently lost her balance secondary to her hip replacement problems. Patient states the ball came out of the socket and she has had previous falls secondary to this problem. 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 Patient states she lifted herself up after the fall without assistance. She admits to hitting her head during the fall and believes she lost consciousness. CT head was completed and did not show acute changes. CT C spine also without acute changes. SHe does have a walker that she does not use regularly and I had extensive conversation with her about the importance of it to increase ambulation and decrease risk of traumatic falls. No significant events overnight. She remains in bed this morning but motivated to improve ambulation. No family at bedside. Active Medications Acetaminophen (Tylenol -) 325 mg PO Q6H PRN PRN Reason: PAIN Last Admin: 07/30/16 14:12 Dose: 325 mg Chlordiazepoxide HCl (Librium -) 25 mg PO TID [facility] Folic Acid (Folic Acid -) 1 mg PO DAILY [facility] Last Admin: 08/02/16 09:27 Dose: 1 mg Sodium Chloride (Normal Saline -) 1,000 mls @ 100 mls/hr IV ASDIR [facility] Last Admin: 08/02/16 04:33 Dose: 100 mls/hr Magnesium Oxide (Mag-Ox -) 400 mg PO BID [facility] Last Admin: 08/02/16 09:27 Dose: 400 mg Methyl Salicylate (Israel-Yancey -) 1 applic TP BID [facility] Last Admin: 08/01/16 22:06 Dose: Not Given Multivitamins/Minerals/Vitamin C (Tab-A-Vit -) 1 tab PO DAILY [facility] Last Admin: 08/02/16 09:27 Dose: 1 tab Oxycodone HCl (Roxicodone -) 5 mg PO Q6H PRN PRN Reason: PAIN Last Admin: 07/30/16 14:12 Dose: 5 mg Thiamine HCl (Vitamin B1 -) 100 mg PO BID [facility] Last Admin: 08/02/16 09:27 Dose: 100 mg Review of Systems CONSTITUTIONAL: Absent: fever, no chills, no fatigue EYES: Absent: visual changes ENT: Absent: ear pain, no sore throat CARDIOVASCULAR: Absent: chest pain, no palpitations RESPIRATORY: Absent: cough, no SOB GI: Absent: abdominal pain, no nausea, no vomiting, no constipation, no diarrhea GENITOURINARY: Absent: dysuria, no frequency, no hematuria MUSCULOSKELETAL: Present: (+) head trauma/pain Absent: back pain, no arthralgia, no myalgia SKIN: Absent: rash NEURO: Absent: headache *Physical Exam Vital Signs Temperature 97.9 F 08/02/16 09:28 Pulse Rate 92 H 08/02/16 09:28 Respiratory Rate 18 08/02/16 09:28 Blood Pressure 145/81 08/02/16 09:28 O2 Sat by Pulse Oximetry (%) 96 08/01/16 22:00 GENERAL: Smells of alcohol, slurring speech. Malnourished. Pale. No apparent distress. Has dentures. HEENT: Scalp laceration in the posterior head. Normocephalic, atraumatic. PERRL, EOM intact. CARDIOVASCULAR: Normal S1, S2. Regular rate and rhythm. PULMONARY: Clear to auscultation bilaterally. ABDOMEN: Soft, non-distended, non-tender. EXTREMITIES: Pelvic ramus not palpable and is asymmetric. No pitting edema in legs. Normal ROM in all four extremities. No gross deformities. SKIN: Warm, dry. No rash NEUROLOGICAL: Following commands. No focal neurological deficits. CBCD WBC 6.5 K/mm3 (4.0-10.0) 08/02/16 06:30 RBC 4.21 M/mm3 (3.60-5.2) D 08/02/16 06:30 Hgb 9.8 GM/dL (10.7-15.3) L D 08/02/16 06:30 Hct 29.9 % (32.4-45.2) L D 08/02/16 06:30 MCV 71.1 fl (80-96) L 08/02/16 06:30 MCHC 32.7 g/dl (32.0-36.0) 08/02/16 06:30 RDW 26.3 % (11.6-15.6) H 08/02/16 06:30 Plt Count 194 K/MM3 (134-434) 08/02/16 06:30 MPV 8.3 fl (7.5-11.1) 08/02/16 06:30 CMP Sodium 130 mmol/L (136-145) L 08/02/16 06:30 Potassium 3.5 mmol/L (3.5-5.1) 08/02/16 06:30 Chloride 95 mmol/L (98-107) L 08/02/16 06:30 Carbon Dioxide 28 mmol/L (21-32) 08/02/16 06:30 Anion Gap 7 (8-16) L 08/02/16 06:30 BUN 6 mg/dL (7-18) L D 08/02/16 06:30 Creatinine 0.3 mg/dL (0.55-1.02) L 08/02/16 06:30 Creat Clearance w eGFR > 60 (>60) 07/31/16 05:40 Calcium 8.4 mg/dL (8.5-10.1) L 08/02/16 06:30 Total Bilirubin 0.8 mg/dL (0.2-1.0) 07/31/16 05:40 AST 41 U/L (15-37) H 07/31/16 05:40 ALT 18 U/L (12-78) 07/31/16 05:40 Alkaline Phosphatase 65 U/L (45-117) 07/31/16 05:40 Total Protein 6.6 g/dl (6.4-8.2) 07/31/16 05:40 Albumin 3.0 g/dl (3.4-5.0) L 07/31/16 05:40 Plan: 70 year old female with no reported significant past medical history, who presents to the ER s/p unwitnessed fall. Patient reports she fell backwards while trying to walk down the steps of her apartment. She states she fell backwards without reported dizziness or lightheadedness at the time of the incident. As per patients daughter, patient has frequently lost her balance secondary to her hip replacement problems. Patient states the ball came out of the socket and she has had previous falls secondary to this problem. 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 Patient states she lifted herself up after the fall without assistance. She admits to hitting her head during the fall and believes she lost consciousness. CT head was completed and did not show acute changes. CT C spine also without acute changes. She does have a walker that she does not use regularly and I had extensive conversation with her about the importance of it to increase ambulation and decrease risk of traumatic falls. Agree with PT. Patient needs to use rolling walker. Fall precautions.
--- NOTE | 2016-08-02 12:24 | CONS ---
PHYSICAL MEDICINE REHABILITATION CONSULTATION DATE OF ADMISSION: 07/29/2016 DATE OF CONSULTATION: 08/02/2016 HISTORY OF PRESENT ILLNESS: The patient is a 70-year-old woman with past medical history of a right total hip replacement and possibly a recent left proximal humerus fracture who was admitted following a fall. Patient evidently has been having problems with her right hip possibly subluxing or a dislocation leading to some instability. She ambulates with a walker, but has had multiple falls. She lost her balance, fell, suffering a head injury as well as falling on her back. She is complaining of pain in her tailbone. On admission, she underwent CT of the head which showed no acute intracranial pathology. There was a moderate degree of diffuse cerebral atrophy with sulcul widening and ventricular dilatation noted. CT scan of the cervical spine showed no fracture, but moderate degenerative arthritis, no subluxation. Patient underwent x-ray of the hip and pelvis, which showed intact right hip prosthesis, degenerative changes. No sign of fracture or subluxation was noted. PATIENTS BLOOD WORK: The patient had significant hyponatremia on admission with a sodium of 115, potassium low at 2.9, BUN low at 4, creatinine low at 0.3, albumin low at 3.1. Blood work initially showed some anemia, hemoglobin 7.9, WBC elevated at 10.2, and platelet count 204. Patients blood work has been monitored. Her hemoglobin did decrease to 6.6, undergoing 2 units of blood transfusion, and as of today, hemoglobin improved to 9.8, hematocrit 29.9, stable WBC at 6.4, platelet count 194. Chemistry has improved gradually, and her sodium remains low, but improved, at 131 as of yesterday, potassium 3.4 slightly low, BUN remains low at 4, creatinine 0.3, she has a low magnesium level of 1.6. She is pending blood work today, but some of the blood work did come back, and her potassium has normalized at 3.5. Patient states she is lightheaded. She states she gets out of bed with assistance to go to ambulate to the bathroom. She states, although I could not find anything in the orthopedic notation, that she recently suffered a fracture to her left arm, which was treated with a sling, but she is unsure where she had x-rays previously. REVIEW OF PAST MEDICAL AND SURGICAL HISTORY: Recent multiple falls, osteoarthritis, right total hip replacement. SOCIAL HISTORY: She lives alone. She drinks up to a bottle of wine per day. She has stairs to get out of her home, but states that she has not been out for some time. CURRENT FUNCTION: Again, she states that she is ambulating to the bathroom with assistance. REVIEW OF SYSTEMS: She does get lightheaded. No dizziness, no headache, no blurry vision or double vision that is new. No nausea, vomiting, difficulty swallowing, difficulty chewing. No chest pain or shortness of breath. No dyspnea on exertion, cough, or abdominal pain. She states she is moving her bowels, urinating, has pain in her tailbone. No complains of hip pain. She does have some difficulty with moving her left upper extremity, she states, due to a recent fracture. She also complains of numbness and tingling in the lower extremities, particularly posterior into the calf. No fevers or chills. No rash. No skin breakdown. PHYSICAL EXAMINATION: General: Patient is seen lying in bed in no acute distress. HEENT: She is normocephalic and atraumatic. Her extraocular muscles appear intact. Neck: Supple. Extremities: Without any pitting edema or calf tenderness. Neuromuscular: She is awake, alert, oriented x3. Cranial nerves 2-12 appear grossly intact. She has limited range in the left shoulder due to pain. Right shoulder has good range of motion. She has good elbow flexion and elbow extension and good instrumentation and controls designer strength bilaterally. She has normal sensation in the upper extremities, but diminished in the S1 distribution bilateral lower extremities. Fairly good range and strength in the lower extremities. Tenderness in the coccyx region. No advanced arthritic changes in the lower extremities. She is unable to stand or ambulate her at this time as we do not have an assistive device. OVERALL IMPRESSION: 1. Deficits mobility and activities of daily living. 2. History of right total hip replacement, possibly subluxation or weakness. 3. Status post multiple falls. 4. Low back pain, rule out stenosis, rule out S1 radiculopathy. 5. Decreased range of motion, left shoulder. Patient reports recent fracture of the proximal humerus. 6. Anemia status post multiple blood transfusions. 7. Hyponatremia, improving. 8. Hypokalemia, improving. 9. Hypomagnesemia. 10. Hypoalbuminemia. 11. Elevated risk for deep venous thrombosis due to immobility. PLANS AND SUGGESTIONS: 1. Physical therapy at the bedside to include bed mobility transfers, gait as appropriate. 2. Weightbearing as tolerated, lower extremities. 3. Would consider x-ray of the left humerus to clarify status of possible proximal humerus fracture. 4. Sling to the left upper extremity. 5. Start Codmans and pendulum if appropriate. 6. Orthopedic followup regarding left shoulder and proximal humerus fracture. 7. Consider DVT prophylaxis if no active bleeding with subcutaneous heparin. 8. Skin precaution. 9. Bowel regimen. 10. She will need short-term rehabilitation in a retirement facility. Thank you for this referral. AG HOLDEN M.D. [id number]
[2016-08-02] MEDS: METHYL SALICYLATE/MENTHOL OINT 30 GM TUBE TP SCH (13:59)
[2016-08-02] MEDS ORDERED: chlordiazePOXIDE HCL 25 MG CAPSULE PO SCH (14:00)
[2016-08-02] MEDS ORDERED: SODIUM CHLORIDE 1 GM TABLET PO SCH (14:15)
--- NOTE | 2016-08-02 14:30 | CONS ---
DATE OF CONSULTATION: DATE OF DICTATION: 08/02/2016 REQUESTING PHYSICIAN: Primo Hayes MD HISTORY OF PRESENT ILLNESS: This is a 70-year-old woman, who was admitted on the after she had a unwitnessed fall. She apparently fell backwards and hit the back of her head. She is being evaluated by neurology as well as orthopedics. I am asked to see her for positive VRE culture from 2009. She continues to be in isolation at our hospital. She denies any fevers or chills. She has no dysuria. She is clinically feeling improved. PAST MEDICAL HISTORY: Notable for a history of osteoarthritis. 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 ALLERGIES: She has no known drug allergies. MEDICATIONS: She takes aspirin and meloxicam. SOCIAL HISTORY: She lives in the community. She smokes a pack a day. She drinks alcohol regularly. REVIEW OF SYSTEMS: She is currently feeling well. She states that she needs a revision of her hip replacement. She denies dysuria or flank pain. PHYSICAL EXAMINATION Vital signs: She is afebrile. Temperature is 98.7, pulse is 87, blood pressure is 152/86, respiratory rate 18. HEENT: She is normocephalic. Her eyes are anicteric. Neck: Supple. Lungs: Clear to auscultation. Heart: Regular rate and rhythm. Abdomen: Soft, nontender. Extremities: The great toe amputation site is well healed. DIAGNOSTIC DATA: White count is 6.5, hemoglobin 9.8, platelets are 194. BUN 6, creatinine 0.3, sodium 124 on admission. LFTs notable for an AST of 41, ALT 18, alkaline phosphatase 65. Her alcohol level was 55 on admission. She is currently on a Librium protocol and is getting fluids, vitamins. SUMMARY: This is a 70-year-old woman admitted with fall, history of alcohol use. She also has apparent anemia that she is refusing workup for. No fevers or chills. Per our protocol, would get a rectal swab and repeat urine culture and repeat urine VRE screen. If negative, she can be removed from isolation. No further recommendations at this time. AZIZA BURCH M.D. [id number]
[2016-08-02 14:31] VITALS: BP 138/71; PULSE 86; TEMP 98.7
--- NOTE | 2016-08-02 14:46 | PN ---
Progress Note, Physician History of Present Illness: Pt seen and examined at bedside. She is awake and alert. She feels that her diet is improving. - Current Medication List Current Medications: Active Medications Acetaminophen (Tylenol -) 325 mg PO Q6H PRN PRN Reason: PAIN Last Admin: 07/30/16 14:12 Dose: 325 mg Chlordiazepoxide HCl (Librium -) 25 mg PO TID [facility] Last Admin: 08/02/16 14:01 Dose: 25 mg Folic Acid (Folic Acid -) 1 mg PO DAILY [facility] Last Admin: 08/02/16 09:27 Dose: 1 mg Sodium Chloride (Normal Saline -) 1,000 mls @ 100 mls/hr IV ASDIR [facility] Last Admin: 08/02/16 14:00 Dose: Not Given Magnesium Oxide (Mag-Ox -) 400 mg PO BID [facility] Last Admin: 08/02/16 09:27 Dose: 400 mg Methyl Salicylate ([place]-Yancey -) 1 applic TP BID [facility] Last Admin: 08/02/16 13:59 Dose: 1 applic Multivitamins/Minerals/Vitamin C (Tab-A-Vit -) 1 tab PO DAILY [facility] Last Admin: 08/02/16 09:27 Dose: 1 tab Oxycodone HCl (Roxicodone -) 5 mg PO Q6H PRN PRN Reason: PAIN Last Admin: 07/30/16 14:12 Dose: 5 mg Sodium Chloride (Sodium Chloride Tablet -) 1 gm PO DAILY [facility] Thiamine HCl (Vitamin B1 -) 100 mg PO BID [facility] Last Admin: 08/02/16 09:27 Dose: 100 mg - Objective Vital Signs: Vital Signs Temperature 98.7 F 08/02/16 14:29 Pulse Rate 86 08/02/16 14:29 Respiratory Rate 17 08/02/16 14:29 Blood Pressure 138/71 08/02/16 14:29 O2 Sat by Pulse Oximetry (%) 95 08/02/16 10:00 Constitutional: Yes: Calm Eyes: Yes: Conjunctiva Clear HENT: Yes: Atraumatic Neck: Yes: Supple Cardiovascular: Yes: S1, S2 Respiratory: Yes: CTA Bilaterally Gastrointestinal: Yes: Normal Bowel Sounds, Soft Genitourinary: Yes: WNL Extremities: Yes: WNL Edema: No Neurological: Yes: Oriented Psychiatric: Yes: Oriented Labs: CBC, BMP 08/02/16 06:30 08/02/16 06:30 INR, PTT INR 1.22 (0.82-1.09) H 07/30/16 00:15 Problem List - Problems (1) Alcohol abuse Code(s): F10.10 - ALCOHOL ABUSE, UNCOMPLICATED (2) Head injury Code(s): S09.90XA - UNSPECIFIED INJURY OF HEAD, INITIAL ENCOUNTER Qualifiers: Encounter type: initial encounter Qualified Code(s): S09.90XA - Unspecified injury of head, initial encounter (3) Hypokalemia Code(s): E87.6 - HYPOKALEMIA (4) Hyponatremia Code(s): E87.1 - HYPO-OSMOLALITY AND HYPONATREMIA (5) Fall Code(s): W19.XXXA - UNSPECIFIED FALL, INITIAL ENCOUNTER Assessment/Plan Current Medications Generic Name Dose Route Start Last Admin Trade Name Freq PRN Reason Stop Dose Admin Acetaminophen 325 mg 07/30/16 07:50 07/30/16 14:12 Tylenol - PO 325 mg Q6H PRN Administration PAIN Chlordiazepoxide HCl 25 mg 08/02/16 14:00 08/02/16 14:01 Librium - PO 25 mg TID [facility] Administration Folic Acid 1 mg 07/30/16 20:45 08/02/16 09:27 Folic Acid - PO 1 mg DAILY [facility] Administration Sodium Chloride 1,000 mls @ 100 mls/hr 08/01/16 14:51 08/02/16 14:00 Normal Saline - IV Not Given ASDIR [facility] Magnesium Oxide 400 mg 07/30/16 22:00 08/02/16 09:27 Mag-Ox - PO 400 mg BID [facility] Administration Methyl Salicylate 1 applic 07/31/16 12:00 08/02/16 13:59 [place]-Yancey - TP 1 applic BID [facility] Administration Multivitamins/Minerals/Vitamin C 1 tab 07/30/16 20:45 08/02/16 09:27 Tab-A-Vit - PO 1 tab DAILY [facility] Administration Oxycodone HCl 5 mg 07/30/16 07:50 07/30/16 14:12 Roxicodone - PO 5 mg Q6H PRN Administration PAIN Sodium Chloride 1 gm 08/02/16 14:15 Sodium Chloride Tablet - PO DAILY [facility] Thiamine HCl 100 mg 07/30/16 22:00 08/02/16 09:27 Vitamin B1 - PO 100 mg BID [facility] Administration Impression 1. hyponatremia 2. osteoarthritis 3. hypokalemia 4. etoh abuse 5. s/p fall Plan - sodium is improving - cont with saline - add salt tab - encourage PO intake - etoh cessation - Hg is improved - anemia workup per primary team - hold mobic and nsaids for now - will follow Dr Lakhani
--- NOTE | 2016-08-02 16:42 | PN ---
Progress Note (short form) - Note Progress Note: Pt seen and examined. She is comfortable, no c/o pain. Hip improving. NTD from an ortho pov
[2016-08-03 10:13] LABS: HEMATOCRIT 31.7 % (34.0-46.6)
[2016-08-04 08:07] LABS: Hgb A2 1.9 % (0.7-3.1)
== END 2016-08-02 18:28 | DRG 92 ==
LOC: JER 19:59 → JERBED 22:58 → UNDOADMIN 23:18 → JERBED 23:18 → J5S 07-30 02:26
PROVIDERS: ADMIT Family Medicine; ATTEND Family Medicine
PROC: 30233N1 Transfusion of Nonautologous Red Blood Cells into Peripheral Vein, Percutaneous Approach (ICD-10-PCS; principal; 2016-08-01)
DX: R26.81 Unsteadiness on feet (principal); E87.1 Hypo-osmolality and hyponatremia; E46 Unspecified protein-calorie malnutrition; S09.90XA Unspecified injury of head, initial encounter; Y93.9 Activity, unspecified; E87.6 Hypokalemia; W19.XXXA Unspecified fall, initial encounter; Y92.098 Other place in other non-institutional residence as the place of occurrence of the external cause; Y99.9 Unspecified external cause status; F10.10 Alcohol abuse, uncomplicated; D50.9 Iron deficiency anemia, unspecified; M19.90 Unspecified osteoarthritis, unspecified site; R26.2 Difficulty in walking, not elsewhere classified; Z68.20 Body mass index [BMI] 20.0-20.9, adult; R29.6 Repeated falls
CPT/HCPCS: 36415; 36430; 36511; 70450-TC; 72125-TC; 73523-TC; 80048; 80053; 80307; 82272; 82436; 82533; 82607; 82728; 82746; 82747; 83010; 83021; 83540; 83550; 83615; 83735; 83930; 83935; 84133; 84300; 84439; 84443; 85014; 85025; 85027; 85044; 85610; 85651; 85660; 86140; 86850; 86880; 86900; 86901; 86922; 87081; 97116-GP; 97161-GP; 99285-25; P9038; P9058

== ENCOUNTER 2017-03-06 06:36 | Emergency (ER) | payer OTHER ==
[2017-03-06] MEDS ORDERED: RAPID SEQUENCE INTUBATION KIT NR ONE ×2 (06:49→06:52)
[2017-03-06 07:19] VITALS: BMI 16.5
[2017-03-06 07:34] LABS: URINE APPEARANCE CLEAR; URINE BILIRUBIN NEGATIVE (NEGATIVE); URINE BLOOD 1+ (NEGATIVE); URINE COLOR YELLOW; URINE GLUCOSE (UA) NEGATIVE (NEGATIVE); URINE KETONE 1+ (NEGATIVE); URINE LEUK ESTERASE NEGATIVE (NEGATIVE); URINE NITRITE NEGATIVE (NEGATIVE); URINE PROTEIN NEGATIVE (NEGATIVE)
[2017-03-06] MEDS ORDERED: CALCIUM GLUCONATE 10% - 1,000 MG/10 ML VIAL ONE (07:35)
[2017-03-06 07:43] VITALS: TEMP 95.3
[2017-03-06 07:45] LABS: ALBUMIN 1.6 g/dl (3.4-5.0); ANION GAP 14 (8-16); BILIRUBIN,TOTAL 0.6 mg/dL (0.2-1.0); BLOOD UREA NITROGEN 7 mg/dL (7-18); CALCIUM 9.3 mg/dL (8.5-10.1); CHLORIDE 94 mmol/L (98-107); CO2 16 mmol/L (21-32); CREATININE 0.5 mg/dL (0.55-1.02); GLUCOSE,RANDOM 160 mg/dL (74-106); SGPT/ALT 16 U/L (12-78); TOT PROT 4.9 g/dl (6.4-8.2)
[2017-03-06 07:54] LABS: ALK PHOS 75 U/L (45-117); N-TERMINAL BNP 13650.64 pg/ml (5-125)
[2017-03-06 07:59] LABS: ARTERIAL BLD GAS O2 SATURATION 35.5 % (90-98.9); ARTERIAL BLOOD GAS BASE EXCESS -15.2 meq/l (-2-2); ARTERIAL BLOOD GAS PCO2 53.5 mmHg (35-45); CARBOXYHEMOGLOBIN 1.4 gm% (0.5-2.0)
--- NOTE | 2017-03-06 08:02 | PDOC ---
History of Present Illness - General Chief Complaint: Respiratory Arrest Stated Complaint: DIFFICULTY BREATHING Time Seen by Provider: 03/06/17 06:42 - History of Present Illness Initial Comments: 03/06/17 07:56 "The patient is a 71 year old female, accompanied by daughter, with no known past medical history, who presents to the emergency department in respiratory distress via EMS. The patient's daughter reports she notified for EMS because the patient had been complaining of SOB for the past several days. When EMS arrived, pt was unresponsive and breathing agonally. EMS administered rescue breaths, and pt regained consciousness. En route, pt was found to be tachycardic and hypoxic. EMS found bottle of vicodin at home but no other drugs or substances. Daughters note that pt often uses oven heat to warm her apartment , and the oven was on with the oven door open last night. The patient's daughter denies the patient has had recent fever, chills, or chest pain. In ER, pt was initially awake and alert but oriented to person only. She complained of difficulty breathing. Shortly after arrival, pt became unresponsive. Pulses were not palpable. At approx 6:50AM, CPR was initiated. Pt was given epi x 2, bicarb, calcium, and intubated. Pulse returned after 2 rounds of CPR, and pt was placed on vent. EKG showed sinus tach. CXR showed patchy infiltrates, consistent with edema vs PNA. At 7:30, pt lost pulse again and CPR was again initiated. Pt was given epi x1. ROSC was achieved after 1 round of CPR. Non-sterile L femoral CVC was placed and levophed gtt was initiated. Past History - Past Medical History Allergies/Adverse Reactions: Allergies Allergy/AdvReac Type Severity Reaction Status Date / Time No Known Allergies Allergy Verified 03/06/17 06:56 Home Medications: Ambulatory Orders Aspirin [ASA -] 81 mg PO DAILY 07/29/16 Acetaminophen [Tylenol .Regular Strength -] 325 mg PO Q6H PRN #0 tablet Folic Acid - 1 mg PO DAILY tablet 08/02/16 Magnesium Oxide [Mag-Ox -] 400 mg PO BID tablet 08/02/16 Methyl Salicylate/Menthol Oint [Analgesic Antlers -] 1 applic TP BID applic Multivitamins [Multivit ([facility] Formulary)] 1 tab PO DAILY tab 08/02/16 Oxycodone HCl [Roxicodone -] 5 mg PO Q6H PRN #0 tablet MDD 4 08/02/16 Sodium Chloride 1,000 mg PO DAILY #7 tablet.viktor 08/02/16 COPD: (unknown) - Surgical History Orthopedic Surgery: Yes (right hip replacement) - Immunization History Immunization Up to Date: Yes - Suicide/Smoking/Psychosocial Hx Smoking History: Unknown if ever smoked Have you smoked in the past 12 months: No Number of Cigarettes Smoked Daily: 12 'Breaking Loose' booklet given: 07/30/16 Hx Alcohol Use: No Drug/Substance Use Hx: No Substance Use Type: None Review of Systems - Review of Systems Able to Perform ROS?: No *Physical Exam - Vital Signs Last Vital Signs Temp Pulse Resp BP Pulse Ox 95.3 F L 80 12 86/74 88 L 03/06/17 06:40 03/06/17 07:43 03/06/17 06:39 03/06/17 07:43 03/06/17 06:39 - Physical Exam Comments: 03/06/17 08:02 "GENERAL: Intubated, unresponsive HEAD: No signs of trauma EYES: PERRLA, EOMI, sclera anicteric, conjunctiva clear ENT: Auricles normal inspection, nares patent, oropharynx clear without exudates. Moist mucosa NECK: Nontender, no stepoffs, Normal ROM, supple, no lymphadenopathy, JVD, or masses LUNGS: Breath sounds coarse bilaterally HEART: Regular rate and rhythm, normal S1 and S2, no murmurs, rubs or gallops ABDOMEN: Soft, nontender, normoactive bowel sounds. No guarding, no rebound. No masses EXTREMITIES: Normal range of motion, no edema. No clubbing or cyanosis. No cords, erythema, or tenderness SKIN: Warm, Dry, normal turgor, no rashes or lesions noted. " Procedures - Central Line Central Line Lumen: triple Central Line Position: femoral (R) Post Central Line Insertion: sutured, good blood return - Intubation Time of Intubation: 06:45 Intubation Method: orotracheal Blade used: Mac Tube Size (Fr): 7.0 Medications: Etomidate, Rocuronium Tube position @ lip (cm): 21 Tube position confirmed by: Direct visualization, CO2 detector, Chest x-ray, Breath sounds Breath Sounds after Intubation: equal Intubation Complications: no complications Post Intubation Xray: Yes ED Treatment Course - LABORATORY CBC & Chemistry Diagram: 03/06/17 07:09 03/06/17 07:09 - RADIOLOGY Radiology Studies Ordered: Category Date Time Status CHEST X-RAY PORTABLE* [RAD] Stat Radiology 03/06/17 06:43 Completed Medical Decision Making - Critical Care Time Total Critical Care Time (minutes): 90 Critical Care Statement: The care of this patient involved high complexity decision making to prevent further life threatening deterioration of the patient 's condition and/or to evaluate & treat vital organ system(s) failure or risk of failure. - Medical Decision Making 03/06/17 08:03 71 F presenting in respiratory distress, and subsequent cardiac arrest. Likely 2 /2 respiratory arrest. Ddx includes APE, multifocal PNA, and PE. Also consider CO poisoning as pt leaves oven on for heat. Pt with vicodin bottles at home but clinically does not seem consistent with opiate overdose. - Labs, trop, carboxyHb - Tox screen - CXR - UA, UCx - BCx - Pressors PRN - Admit ICU Pt signed out to oncoming attending at 7am. Case discussed in detail with oncoming Emergency Physician including history, physical exam and ancillary studies. Oncoming Emergency Physician has assumed care for the patient and will complete the evaluation and treatment. Patient is aware of the plan. *DC/Admit/Observation/Transfer Diagnosis at time of Disposition: Pneumonia, Sepsis - Discharge Dispostion Disposition: Condition at time of disposition: - Referrals - Patient Instructions - Post Discharge Activity
[2017-03-06 08:03] LABS: INR 1.4 (0.82-1.09); PROTHROMBIN TIME (PATIENT) 15.8 SEC (9.98-11.88)
[2017-03-06 08:06] LABS: ACTIVATED PTT 40.7 SECONDS (26.9-34.4)
[2017-03-06 08:12] LABS: BASO % 0.5 % (0-2.0); EOS % 0.2 % (0-4.5); HEMATOCRIT 33.2 % (32.4-45.2); HEMOGLOBIN 9.8 GM/dL (10.7-15.3); MCH 26.5 pg (25.7-33.7); MCHC 29.7 g/dl (32.0-36.0); MEAN CELL VOLUME 89.3 fl (80-96); MEAN PLT VOLUME 8.4 fl (7.5-11.1); MONO % 9.1 % (3.8-10.2); NEUT % 83.2 % (42.8-82.8); PLATELET COUNT 257 K/MM3 (134-434); RBC 3.72 M/mm3 (3.60-5.2); RDW 17.4 % (11.6-15.6); WHITE BLOOD COUNT 13.9 K/mm3 (4.0-10.0)
[2017-03-06] MEDS ORDERED: PIPERACILLIN/TAZOB 3.375 GM 50 ML IVPB ONE (08:16)
[2017-03-06 08:18] LABS: EPI CELLS RARE /HPF (FEW); URINE BACTERIA RARE /hpf (NONE SEEN); URINE HYALINE CAST 2 /lpf; URINE MUCUS RARE
[2017-03-06] MEDS ORDERED: DOPAMINE 400 MG/D5W - 400,000 MCG/250 ML INFUS.BAG IVPB SCH (08:30)
[2017-03-06] MEDS ORDERED: NOREPINEPHRINE BITARTRATE 4,000 MCG in DEXTROSE 5%-WATER - 496 ML IV SCH (08:30)
[2017-03-06 08:33] LABS: ARTERIAL BLOOD GAS PO2 36.5 mmHg (70-100); ARTERIAL BLOOD GAS pH 7.06 (7.35-7.45)
--- NOTE | 2017-03-06 08:42 | PDOC ---
*Physical Exam - Vital Signs Last Vital Signs Temp Pulse Resp BP Pulse Ox 95.3 F L 80 18 86/74 88 L 03/06/17 06:40 03/06/17 07:43 03/06/17 07:15 03/06/17 07:43 03/06/17 06:39 <JamesKaris - Last Filed: 03/06/17 09:37> - Vital Signs Last Vital Signs Temp Pulse Resp BP Pulse Ox 95.3 F L 80 12 86/74 88 L 03/06/17 06:40 03/06/17 07:43 03/06/17 06:39 03/06/17 07:43 03/06/17 06:39 <Ave Saba - Last Filed: 03/06/17 10:50> ED Treatment Course - LABORATORY CBC & Chemistry Diagram: 03/06/17 07:09 03/06/17 07:09 - ADDITIONAL ORDERS Additional order review: Laboratory Results 03/06/17 03/06/17 03/06/17 08:09 07:50 07:22 PT with INR INR PTT (Actin FS) Puncture Site Left femoral ABG pH 7.06 L* ABG pCO2 at Pt Temp 53.5 H ABG pO2 at Pt Temp 36.5 L* ABG HCO3 14.4 L* ABG O2 Sat (Measured) 35.5 L* ABG O2 Content 4.5 L* ABG Base Excess -15.2 L* Oral Test Not applicable Carboxyhemoglobin 1.4 Methemoglobin 0.7 O2 Delivery Device Vent espirit Oxygen Flow Rate 100 Vent Mode Mode ot Vent Rate 18 Mechanical Rate Espirit PEEP 10.0 Pressure Support Vent 400 Sodium Potassium Chloride Carbon Dioxide Anion Gap BUN Creatinine Creat Clearance w eGFR Random Glucose Lactic Acid 9.6 H* Calcium Total Bilirubin AST ALT Alkaline Phosphatase Creatine Kinase Troponin I B-Natriuretic Peptide Total Protein Albumin TSH Urine Color Yellow Urine Appearance Clear Urine pH 6.0 Ur Specific [place] 1.009 Urine Protein Negative Urine Glucose (UA) Negative Urine Ketones 1+ H Urine Blood 1+ H Urine Nitrite Negative Urine Bilirubin Negative Urine Urobilinogen 2.0 H Urine WBC (Auto) 1 Urine RBC (Auto) 2 Ur Epithelial Cells Rare Urine Bacteria Rare Hyaline Casts 2 Urine Mucus Rare Blood Type Antibody Screen 03/06/17 03/06/17 03/06/17 07:09 07:09 06:43 PT with INR 15.80 H INR 1.40 H PTT (Actin FS) 40.7 H Puncture Site ABG pH ABG pCO2 at Pt Temp ABG pO2 at Pt Temp ABG HCO3 ABG O2 Sat (Measured) ABG O2 Content ABG Base Excess Oral Test Carboxyhemoglobin Methemoglobin O2 Delivery Device Oxygen Flow Rate Vent Mode Vent Rate Mechanical Rate PEEP Pressure Support Vent Sodium 124 L* Potassium 4.7 D Chloride 94 L Carbon Dioxide 16 L D Anion Gap 14 BUN 7 Creatinine 0.5 L D Creat Clearance w eGFR > 60 Random Glucose 160 H D Lactic Acid Calcium 9.3 Total Bilirubin 0.6 D AST 64 H D ALT 16 Alkaline Phosphatase 75 Creatine Kinase 129 Troponin I 3.23 H* B-Natriuretic Peptide 93990.64 H Total Protein 4.9 L D Albumin 1.6 L D TSH 0.98 D Urine Color Urine Appearance Urine pH Ur Specific [place] Urine Protein Urine Glucose (UA) Urine Ketones Urine Blood Urine Nitrite Urine Bilirubin Urine Urobilinogen Urine WBC (Auto) Urine RBC (Auto) Ur Epithelial Cells Urine Bacteria Hyaline Casts Urine Mucus Blood Type AB POSITIVE Antibody Screen Negative 03/06/17 07:09 RBC 3.72 MCV 89.3 MCHC 29.7 L RDW 17.4 H D MPV 8.4 Neutrophils % 83.2 H D Lymphocytes % 7.0 L D Monocytes % 9.1 Eosinophils % 0.2 D Basophils % 0.5 - Consult/PCP Time Called: 09:32 (Left messge with call service from PCP Iyad. Faith) <Karis Ramirze - Last Filed: 03/06/17 09:37> - LABORATORY CBC & Chemistry Diagram: 03/06/17 07:09 03/06/17 07:09 - ADDITIONAL ORDERS Additional order review: Laboratory Results 03/06/17 03/06/17 03/06/17 07:50 07:22 07:09 PT with INR 15.80 H INR 1.40 H PTT (Actin FS) 40.7 H Puncture Site Left femoral ABG pH 7.06 L* ABG pCO2 at Pt Temp 53.5 H ABG pO2 at Pt Temp 36.5 L* ABG HCO3 14.4 L* ABG O2 Sat (Measured) 35.5 L* ABG O2 Content 4.5 L* ABG Base Excess -15.2 L* Oral Test Not applicable Carboxyhemoglobin 1.4 Methemoglobin 0.7 O2 Delivery Device Vent espirit Oxygen Flow Rate 100 Vent Mode Mode ot Vent Rate 18 Mechanical Rate Espirit PEEP 10.0 Pressure Support Vent 400 Urine Color Yellow Urine Appearance Clear Urine pH 6.0 Ur Specific [place] 1.009 Urine Protein Negative Urine Glucose (UA) Negative Urine Ketones 1+ H Urine Blood 1+ H Urine Nitrite Negative Urine Bilirubin Negative Urine Urobilinogen 2.0 H Urine WBC (Auto) 1 Urine RBC (Auto) 2 Ur Epithelial Cells Rare Urine Bacteria Rare Hyaline Casts 2 Urine Mucus Rare 03/06/17 07:09 RBC 3.72 MCV 89.3 MCHC 29.7 L RDW 17.4 H D MPV 8.4 Neutrophils % 83.2 H D Lymphocytes % 7.0 L D Monocytes % 9.1 Eosinophils % 0.2 D Basophils % 0.5 <A[address] Saba - Last Filed: 03/06/17 10:50> Medical Decision Making - Critical Care Time Total Critical Care Time (minutes): 90 Critical Care Statement: The care of this patient involved high complexity decision making to prevent further life threatening deterioration of the patient 's condition and/or to evaluate & treat vital organ system(s) failure or risk of failure. - Medical Decision Making 03/06/17 08:42 Late entry. Pt endorsed to me by Dr. Oconnell at 7am shift change. Presented with recent history of SOB, daughters called EMS when she worsened this morning. She became apneic on EMS arrival, was bagged with improvement in mental status. She was intubated, IVF started, dopamine. On my arrival, she was hypotensive, intubated. She was not responding to the dopamine and her pulses were thready. O2Sat continued to slowly drop, at one point into the 40s, despite increased PEEP, 100% O2, increased RR. Central line was placed, patient maxed out on dopamine and levophed, still with no change in status. She lost her pulses twice since 7am. At 8:26am, she lost pulses again, PEA on monitor with extreme bradycardic rhythm. ACLS protocol initiated again, however, this time there was no cardiac motion on bedside ultrasound. Time of at 8:29. 03/06/17 09:26 Case d/w ME, not an ME case. Release number [id number]. Discussed with Leonel Pacheco. <Ave Saba - Last Filed: 03/06/17 10:50> *DC/Admit/Observation/Transfer <Karis Ramirez - Last Filed: 03/06/17 09:37> <Ave Saba - Last Filed: 03/06/17 10:50> Diagnosis at time of Disposition: Pneumonia Qualifiers: Pneumonia type: due to unspecified organism Laterality: unspecified laterality Lung location: unspecified part of lung Qualified Code(s): J18.9 - Pneumonia, unspecified organism Sepsis Qualifiers: Sepsis type: sepsis due to unspecified organism Qualified Code(s): A41.9 - Sepsis, unspecified organism - Discharge Dispostion Disposition: Condition at time of disposition: Procedures - Central Line Central Line Lumen: triple Central Line Position: femoral (R) Complications: none Post Central Line Insertion: sutured, good blood return Progress: 03/06/17 08:38 Late entry. Central line was placed emergently for severe sepsis, hypotension, need for multiple drips. Initial attempt on L side, unable to get venous access. Subsequently able to place line to R femoral. Line was not sterile, placed under emergency conditions. <Ave Saba - Last Filed: 03/06/17 10:50>
[2017-03-06 08:47] LABS: POTASSIUM 4.7 mmol/L (3.5-5.1)
[2017-03-06 08:48] LABS: SGOT/AST 64 U/L (15-37); SODIUM 124 mmol/L (136-145)
[2017-03-06] MEDS ORDERED: VANCOMYCIN 1,000 MG in DEXTROSE 5%-WATER - 250 ML IVPB SCH (10:00)
[2017-03-06 10:47] VITALS: PULSE 115
[2017-03-06 10:48] VITALS: BP 59/35
--- NOTE | 2017-03-06 15:23 | EKG ---
Test Reason : Blood Pressure : / mmHG Vent. Rate : 117 BPM Atrial Rate : 117 BPM P-R Int : 160 ms QRS Dur : 110 ms QT Int : 364 ms P-R-T Axes : 026 -33 120 degrees QTc Int : 507 ms SINUS TACHYCARDIA WITH OCCASIONAL PREMATURE VENTRICULAR COMPLEXES LEFT AXIS DEVIATION LOW VOLTAGE QRS SEPTAL INFARCT , AGE UNDETERMINED ABNORMAL ECG WHEN COMPARED WITH ECG OF 08-NOV-2009 01:57, SIGNIFICANT CHANGES HAVE OCCURRED Confirmed by NOHEMY BARRAZA, LITO ([id number]) on 03/06/2017 3:23:17 PM Referred By: Confirmed By:LITO SLATER MD
== END 2017-03-06 08:29 | disposition expired ==
LOC: JER 06:36
PROC: 06HY33Z Insertion of Infusion Device into Lower Vein, Percutaneous Approach (ICD-10-PCS; principal; 2017-03-06)
PROC: 3E033XZ Introduction of Vasopressor into Peripheral Vein, Percutaneous Approach (ICD-10-PCS; 2017-03-06)
PROC: 5A12012 Performance of Cardiac Output, Single, Manual (ICD-10-PCS; 2017-03-06)
PROC: 0T9B70Z Drainage of Bladder with Drainage Device, Via Natural or Artificial Opening (ICD-10-PCS; 2017-03-06)
PROC: 0JH63XZ Insertion of Tunneled Vascular Access Device into Chest Subcutaneous Tissue and Fascia, Percutaneous Approach (ICD-10-PCS; 2017-03-06)
DX: I46.9 Cardiac arrest, cause unspecified (principal); R06.03 Acute respiratory distress; J18.9 Pneumonia, unspecified organism; A41.9 Sepsis, unspecified organism; F17.210 Nicotine dependence, cigarettes, uncomplicated
CPT/HCPCS: 31500; 36415; 36558; 36600; 51702; 71010-TC; 80053; 81003; 81015; 82375; 82550; 82803; 83050; 83605; 83880; 84443; 84484; 85025; 85610; 85730; 86850; 86900; 86901; 87040; 87086; 92950; 93005; 93010; 96365; 99285-25